=== PATIENT | male | born 1940 | race Caucasian/White ===

== ENCOUNTER → 2024-06-04 | Outpatient (CLI) | payer MEDICARE, SELFPAY ==
[2024-06-04 17:37] LABS: Basophils # (Auto) 0.1 Thou/mm3 (0.0-0.2); Basophils % (Auto) 1 % (0-2.5); Eosinophils # (Auto) 0.4 Thou/mm3 (0.0-0.5); Eosinophils % (Auto) 4 % (0-10); Hematocrit 41.1 % (41.0-53.0); Hemoglobin 13.5 g/dL (13.5-16.0); Immature Granulocytes % (Auto) 1 % (0-0); Immature Granulocytes Auto 0.07 Thou/mm3 (0.00-0.00); Lymphocytes # (Auto) 1.9 Thou/mm3 (1.0-4.8); Lymphocytes % (Auto) 16 % (10-50); Mean Corpuscular HGB Conc 32.8 g/dl (31.0-37.0); Mean Corpuscular Hemoglobin 31.3 pg (25.0-35.0); Mean Corpuscular Volume 95 fL (80-100); Monocytes # (Auto) 1.3 Thou/mm3 (0.0-0.8); Monocytes % (Auto) 11 % (0-12); Neutrophils # (Auto) 8.2 Thou/mm3 (1.8-7.7); Neutrophils % (Auto) 68 % (37-80); Nucleated Red Blood Cell % 0 /100 WBC (0); Platelet Count 192 Thou/mm3 (140-440); RDW Standard Deviation 45.7 fL (35.1-43.9); Red Blood Count 4.32 Miln/mm3 (4.50-5.90); White Blood Count 12.1 Thou/mm3 (3.8-10.6)
[2024-06-04 17:44] LABS: Albumin, Serum 4.1 gm/dL (3.4-4.8); Anion Gap 6 (7-16); BUN/Creatinine Ratio 11 Ratio (12-20); Blood Urea Nitrogen 19 mg/dL (9-23); Calcium 9.5 mg/dL (8.3-10.6); Calcium (Corrected) 9.5 mg/dL (8.5-10.1); Carbon Dioxide 26.7 mMol/L (20.0-31.0); Chloride 103 mMol/L (98-107); Creatinine (Component) 1.8 mg/dL (0.6-1.3); Glucose 143 mg/dL (74-106); Osmolality,Calculated 276 (275-295); Phosphorous 2.8 mg/dL (2.4-5.1); Potassium 4.4 mMol/L (3.4-5.1); Sodium 136 mMol/L (136-145); eGFR 36 See Note
[2024-06-04 18:40] LABS: B-Type Natriuretic Peptide 66 pg/mL (0-100)
== END | disposition home or self-care (01) ==
LOC: COPL 15:21
PROVIDERS: PCP Specialist; Referring Provider Specialist; Visit Provider Specialist
DX: I50.22 Chronic systolic (congestive) heart failure (principal)
CPT/HCPCS: 36415; 80069; 83880; 85025

== ENCOUNTER → 2024-06-16 | Outpatient (CLI) | payer MEDICARE, SELFPAY ==
[2024-06-16 16:34] LABS: Basophils # (Auto) 0.1 Thou/mm3 (0.0-0.2); Basophils % (Auto) 1 % (0-2.5); Eosinophils # (Auto) 0.7 Thou/mm3 (0.0-0.5); Eosinophils % (Auto) 6 % (0-10); Hemoglobin 12.8 g/dL (13.5-16.0); Immature Granulocytes % (Auto) 0 % (0-0); Immature Granulocytes Auto 0.04 Thou/mm3 (0.00-0.00); Lymphocytes # (Auto) 2.9 Thou/mm3 (1.0-4.8); Lymphocytes % (Auto) 24 % (10-50); Mean Corpuscular HGB Conc 32.8 g/dl (31.0-37.0); Mean Corpuscular Hemoglobin 30.6 pg (25.0-35.0); Mean Corpuscular Volume 93 fL (80-100); Monocytes # (Auto) 1.1 Thou/mm3 (0.0-0.8); Monocytes % (Auto) 9 % (0-12); Neutrophils # (Auto) 6.9 Thou/mm3 (1.8-7.7); Neutrophils % (Auto) 59 % (37-80); Nucleated Red Blood Cell % 0 /100 WBC (0); Platelet Count 211 Thou/mm3 (140-440); Red Blood Count 4.18 Miln/mm3 (4.50-5.90); White Blood Count 11.7 Thou/mm3 (3.8-10.6)
[2024-06-16 16:46] LABS: B-Type Natriuretic Peptide 166 pg/mL (0-100)
[2024-06-16 17:07] LABS: Albumin, Serum 4.2 gm/dL (3.4-4.8); Anion Gap 7 (7-16); BUN/Creatinine Ratio 14 Ratio (12-20); Blood Urea Nitrogen 27 mg/dL (9-23); Calcium 9.2 mg/dL (8.3-10.6); Calcium (Corrected) 9.2 mg/dL (8.5-10.1); Carbon Dioxide 26.1 mMol/L (20.0-31.0); Chloride 105 mMol/L (98-107); Creatinine (Component) 1.9 mg/dL (0.6-1.3); Glucose 128 mg/dL (74-106); Osmolality,Calculated 282 (275-295); Phosphorous 3.2 mg/dL (2.4-5.1); Sodium 138 mMol/L (136-145); eGFR 34 See Note
== END | disposition home or self-care (01) ==
PROVIDERS: PCP Specialist; Referring Provider Specialist; Visit Provider Specialist
DX: N18.4 Chronic kidney disease, stage 4 (severe) (principal)
CPT/HCPCS: 36415; 80069; 83880; 85025

== ENCOUNTER → 2024-08-21 | Outpatient (CLI) | payer MEDICARE, SELFPAY ==
[2024-08-21 13:29] LABS: Basophils # (Auto) 0.1 Thou/mm3 (0.0-0.2); Basophils % (Auto) 1 % (0-2.5); Eosinophils # (Auto) 0.5 Thou/mm3 (0.0-0.5); Eosinophils % (Auto) 4 % (0-10); Hematocrit 42.2 % (41.0-53.0); Immature Granulocytes % (Auto) 0 % (0-0); Immature Granulocytes Auto 0.04 Thou/mm3 (0.00-0.00); Lymphocytes # (Auto) 2.7 Thou/mm3 (1.0-4.8); Lymphocytes % (Auto) 25 % (10-50); Mean Corpuscular HGB Conc 33.2 g/dl (31.0-37.0); Mean Corpuscular Hemoglobin 30.7 pg (25.0-35.0); Mean Corpuscular Volume 93 fL (80-100); Monocytes % (Auto) 10 % (0-12); Neutrophils # (Auto) 6.5 Thou/mm3 (1.8-7.7); Neutrophils % (Auto) 60 % (37-80); Nucleated Red Blood Cell % 0 /100 WBC (0); Platelet Count 227 Thou/mm3 (140-440); RDW Standard Deviation 44.4 fL (35.1-43.9); Red Blood Count 4.56 Miln/mm3 (4.50-5.90); White Blood Count 10.9 Thou/mm3 (3.8-10.6)
[2024-08-21 13:43] LABS: Glucose Estimated Average 123 mg/dL (80-131); Hemoglobin A1C 5.9 % Hgb (4.8-6.0)
[2024-08-21 13:46] LABS: Creatinine MALB Rnd Ur 39 mg/dL (30-125); Microalbumin, Random Urine < 3 mg/L (0-300)
[2024-08-21 13:47] LABS: Alanine Aminotransferase 10 U/L (10-49); Albumin/Globulin Ratio 1.9 (1.2-2.2); Alkaline Phosphatase 102 U/L (46-116); Anion Gap 9 (7-16); Aspartate Amino Transferase 14 U/L (0-34); BUN/Creatinine Ratio 14 Ratio (12-20); Bilirubin,Total 0.7 mg/dL (0.3-1.2); Blood Urea Nitrogen 26 mg/dL (9-23); Calcium 9.6 mg/dL (8.3-10.6); Calcium (Corrected) 9.6 mg/dL (8.5-10.1); Carbon Dioxide 26.5 mMol/L (20.0-31.0); Cardiac Risk Estimate 2.6 RATIO (4.0-6.7); Chloride 106 mMol/L (98-107); Cholesterol 124 mg/dL (132-200); Creatinine (Component) 1.9 mg/dL (0.6-1.3); Globulin 2.1 gm/dL (2.3-3.5); Glucose 120 mg/dL (74-106); HDL Cholesterol 47 mg/dL (40-60); LDL Cholesterol,Calculated 56 mg/dL (0-130); Osmolality,Calculated 286 (275-295); Potassium 5.3 mMol/L (3.4-5.1); Sodium 141 mMol/L (136-145); Thyroid Stimulating Hormone 0.73 uIU/mL (0.55-4.78); Total Protein 6.1 gm/dL (5.7-8.2); Triglycerides 104 mg/dL (30-150); eGFR 34 See Note
[2024-08-21 13:50] LABS: B-Type Natriuretic Peptide 65 pg/mL (0-100)
== END | disposition home or self-care (01) ==
LOC: COPL 12:39
PROVIDERS: PCP Specialist; Referring Provider Specialist; Visit Provider Specialist
DX: E11.65 Type 2 diabetes mellitus with hyperglycemia (principal); E78.2 Mixed hyperlipidemia; I50.22 Chronic systolic (congestive) heart failure; D63.8 Anemia in other chronic diseases classified elsewhere
CPT/HCPCS: 36415; 80053; 80061; 82043; 82570; 83036; 83880; 84443; 85025

== ENCOUNTER → 2024-09-17 | Outpatient (CLI) | payer MEDICARE, SELFPAY ==
--- NOTE | 2024-09-17 16:46 | XR_ITS ---
Examination: PA lateral chest 2 views Technique: Upright PA lateral chest 2 views Exam date and time: September 17, 2024 1721 hrs. Comparison April 17, 2024 Indications: Coughing wheezing beginning 3 days ago. Findings: Mild prominence left ventricle Cardiac leads satisfactory position Severe osteopenia No pneumonia or pulmonary edema Impression: No pneumonia or pulmonary edema
== END | disposition home or self-care (01) ==
PROVIDERS: PCP Specialist; Referring Provider Specialist; Visit Provider Specialist
DX: R06.2 Wheezing (principal)
CPT/HCPCS: 71046

== ENCOUNTER → 2024-09-22 | Outpatient (CLI) | payer MEDICARE, SELFPAY ==
[2024-09-22 16:20] LABS: Albumin, Serum 3.9 gm/dL (3.4-4.8); Anion Gap 7 (7-16); BUN/Creatinine Ratio 13 Ratio (12-20); Blood Urea Nitrogen 21 mg/dL (9-23); Calcium 9.2 mg/dL (8.3-10.6); Calcium (Corrected) 9.3 mg/dL (8.5-10.1); Carbon Dioxide 22.9 mMol/L (20.0-31.0); Chloride 110 mMol/L (98-107); Creatinine (Component) 1.6 mg/dL (0.6-1.3); Glucose 101 mg/dL (74-106); Osmolality,Calculated 282 (275-295); Potassium 5.3 mMol/L (3.4-5.1); Sodium 140 mMol/L (136-145); eGFR 42 See Note
== END | disposition home or self-care (01) ==
LOC: COPL 15:27
PROVIDERS: PCP Specialist; Referring Provider Specialist; Visit Provider Specialist
DX: N18.9 Chronic kidney disease, unspecified (principal)
CPT/HCPCS: 36415; 80069

== ENCOUNTER 2024-11-21 15:16 | Inpatient (IN) | payer MEDICARE, SELFPAY ==
[2024-11-21] VITALS (10 sets, daily range): BP systolic 109–158; BP diastolic 60–85; PULSE 69–80; RESP 15–98; TEMP 36.7–36.8; O2SAT 96–99; BMI 28.5; BMI 29.4
--- NOTE | 2024-11-21 15:43 | EKG_ITS ---
[facility] Test Date: 2024-11-21 Pat Name: KRUNAL SALAS Department: Room: - Gender: Male Attending Ambulatory Care: : 1940 Requested By: Mareclo Ballesteros (SELMA) Order Number: [id number] Reading MD: Marcelo Ballesteros (ELECTRIC AR[employer] WELDER) Measurements Intervals [place] Rate: 69 P: MS: QRS: 202 QRSD: 149 T: 14 QT: 434 QTc: 468 Interpretive Statements ELECTRONIC VENTRICULAR PACEMAKER ABNORMAL RHYTHM ECG Compared to ECG 11/27/2023 14:19:33 Atrial-paced complex(es) or rhythm no longer present /store/S0/[id number].pdf
--- NOTE | 2024-11-21 15:44 | PD.EDRME ---
Rapid Medical Screening Exam E Arrival date/time: 11/21/24 15:16 84-year-old male with history of triple bypass and pacemaker currently on blood thinners presents to the emergency department today for complaints of rectal bleeding and vomiting blood today Chief Complaint: GI Bleed Time Seen by Provider: 11/21/24 15:36 Vital signs: Vital Signs Temperature 98.0 F 11/21/24 15:36 Pulse Rate 69 11/21/24 15:36 Respiratory Rate 17 11/21/24 15:36 Blood Pressure 109/64 11/21/24 15:36 Pulse Oximetry (%) 98 11/21/24 15:36 Oxygen Delivery Method Room Air 11/21/24 15:36
[2024-11-21 16:11] LABS: Basophils # (Auto) 0.1 Thou/mm3 (0.0-0.2); Basophils % (Auto) 0 % (0-2.5); Eosinophils % (Auto) 0 % (0-10); Hematocrit 32.4 % (41.0-53.0); Immature Granulocytes % (Auto) 0 % (0-0); Immature Granulocytes Auto 0.06 Thou/mm3 (0.00-0.00); Lymphocytes # (Auto) 2.1 Thou/mm3 (1.0-4.8); Lymphocytes % (Auto) 15 % (10-50); Mean Corpuscular Hemoglobin 30.8 pg (25.0-35.0); Mean Corpuscular Volume 91 fL (80-100); Monocytes # (Auto) 0.6 Thou/mm3 (0.0-0.8); Monocytes % (Auto) 4 % (0-12); Neutrophils # (Auto) 11.8 Thou/mm3 (1.8-7.7); Neutrophils % (Auto) 80 % (37-80); Nucleated Red Blood Cell % 0 /100 WBC (0); Platelet Count 219 Thou/mm3 (140-440); RDW Standard Deviation 45.9 fL (35.1-43.9); Red Blood Count 3.57 Miln/mm3 (4.50-5.90); White Blood Count 14.7 Thou/mm3 (3.8-10.6)
[2024-11-21 16:37] LABS: INR 1.4 (0.9-1.3); Partial Thromboplastin Time 27.8 Seconds (22.0-36.0); Prothrombin Time 14.5 Seconds (9.0-12.2)
[2024-11-21 16:39] LABS: Albumin, Serum 3.8 gm/dL (3.4-4.8); Albumin/Globulin Ratio 1.9 (1.2-2.2); Alkaline Phosphatase 78 U/L (46-116); Anion Gap 10 (7-16); Aspartate Amino Transferase 11 U/L (0-34); BUN/Creatinine Ratio 24 Ratio (12-20); Bilirubin,Total 0.7 mg/dL (0.3-1.2); Blood Urea Nitrogen 41 mg/dL (9-23); Calcium 8.4 mg/dL (8.3-10.6); Calcium (Corrected) 8.6 mg/dL (8.5-10.1); Carbon Dioxide 21.9 mMol/L (20.0-31.0); Chloride 109 mMol/L (98-107); Creatinine (Component) 1.7 mg/dL (0.6-1.3); Estimated Creatinine Clearance 35.7 mL/min (>60); Glucose 203 mg/dL (74-106); Lipase 28 U/L (12-53); Osmolality,Calculated 297 (275-295); Potassium 4.7 mMol/L (3.4-5.1); Sodium 141 mMol/L (136-145); Total Protein 5.8 gm/dL (5.7-8.2); eGFR 39 See Note
[2024-11-21 16:40] LABS: B-Type Natriuretic Peptide 70 pg/mL (0-100)
[2024-11-21 16:48] LABS: Alanine Aminotransferase < 7 U/L (10-49)
[2024-11-21 17:04] LABS: Troponin I 0.114 ng/mL (0.0-0.045)
--- NOTE | 2024-11-21 17:32 | PD.EDGIBLD ---
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 Patient was feeling bad today, and vomited blood with blood clots. And also noted black tarry stools since earlier today. Patient denies any chest pain denies any cough denies any dizziness denies any other complaints no medications taken prior to arrival. Related Data Home Medications ?Medication ?Instructions ?Recorded ?Confirmed simvastatin 20 mg tablet 1 tab PO HS ##90 01/08/15 12/31/23 gabapentin 300 mg capsule 300 mg PO DAILY 04/29/18 12/31/23 tamsulosin 0.4 mg capsule (Flomax) 0.4 mg PO DAILY 04/29/18 12/31/23 tramadol 50 mg tablet 50 mg PO Q6H 04/29/18 12/31/23 vitamin B complex-vitamin C-folic 0.8 mg PO DAILY 04/29/18 12/31/23 acid 0.8 mg tablet (Dialyvite 800) amiodarone 200 mg tablet 200 mg PO QDAY 09/26/18 12/31/23 aspirin 81 mg tablet 81 mg PO QDAY 03/08/22 12/31/23 Held on 11/28/23. Instructions: Resume on 12/05/23. hold for one week. verify with dr. neely when to restart medication finasteride 5 mg tablet 5 mg PO QDAY 10/02/22 12/31/23 fluticasone fur. 200 mcg-umeclid 1 inh inhalation QDAY 10/14/23 12/31/23 62.5 mcg-vilant 25 mcg inhalat.powder (Trelegy Ellipta) albuterol sulfate 90 mcg/actuation 2 puff inhalation Q4-5H PRN 11/07/23 12/31/23 aerosol inhaler cough/wheezing loratadine 10 mg tablet (Claritin) 10 mg PO QDAY PRN allergies 11/07/23 12/31/23 amitriptyline 50 mg tablet 50 mg PO QDAY 11/28/23 12/31/23 sacubitril 24 mg-valsartan 26 mg 1 tab PO DAILY 11/28/23 12/31/23 tablet (Entresto) Previous Rx's ?Medication ?Instructions ?Recorded levalbuterol tartrate 45 2 inh inhalation Q6H wheezing, 09/26/18 mcg/actuation aerosol inhaler coughing or sob #15 grams (Xopenex HFA) bumetanide 1 mg tablet 1 mg PO QDAY #30 tabs 10/18/23 dapagliflozin propanediol 10 mg 10 mg PO QAM #30 tabs 10/18/23 tablet (Farxiga) spironolactone 25 mg tablet 25 mg PO QDAY #30 tabs 10/18/23 Allergies Allergy/AdvReac Type Severity Reaction Status Date / Time Penicillins Allergy Mild rash Verified 11/21/24 15:29 Review of Systems Review of Systems Narrative Review of Systems: Review of system reviewed and within normal limits except mentioned in HPI ED Exam Narrative Physical exam: VITAL SIGNS: Reviewed. GENERAL APPEARANCE: Alert and interactive, follows commands, no acute distress, HEAD AND FACE: Non-traumatic. ENT: PERRL, pink conjunctivitis, eyelid no trauma, Mucous membrane moist. NECK: Supple, nontender, no nuchal rigidity. CHEST: No tenderness, no crepitus, no paradoxical movement, no retractions. LUNGS: Clear, well ventilated, symmetric, no rales, no wheezing, no ronchi, no stridor, good breath sounds bilaterally. HEART: Regular rate, regular rhythm, no murmur, no gallops. ABDOMEN: Soft, positive bowel sounds, nondistended, no guarding, nontender, no rebound, no masses, RECTAL: Rectal exam was done by me, no black tarry stool noted. GENITAL: Deferred. NEUROLOGICAL: Gross motor function intact sensory function intact, Appropriate for age. MUSCULOSKELETAL: low back nontender, full range of motion. EXTREMITIES: Nontender, full range of motion. SKIN: Color pink, dry, no rash, no lacerations, no abrasions, no contusions. LYMPHATICS: Deferred. Course Quality Measures none Orders Category Date Time Status COVID-19 Screening Questionnaire NOW Care 11/21/24 19:27 Active Decision to Admit X1 Care 11/21/24 19:27 Completed EKG (ED ONLY) *Do not use* NOW Care 11/21/24 15:43 Completed Endoscopy Consents .On arrival Care 11/21/24 19:48 Active Insert IV NOW Care 11/21/24 15:44 Active NPO NOW Care 11/21/24 19:16 Active NPO NOW Care 11/21/24 19:48 Active Occult Blood,Stool (Nursing) NOW Care 11/21/24 19:03 Active Consult to Gastroenterology Stat Cons 11/21/24 18:50 Ordered Diet NPO (NOW) Diet 11/21/24 19:16 Completed Diet NPO (NOW) Diet 11/21/24 19:48 Active EKG (ED Only) Stat Exams 11/21/24 15:43 Draft B-Type Natriuretic Peptide Stat Lab 11/21/24 15:53 Completed CBC Stat Lab 11/21/24 15:53 Completed Comprehensive Metabolic Panel Stat Lab 11/21/24 15:53 Completed Lipase Stat Lab 11/21/24 15:53 Completed Magnesium Stat Lab 11/21/24 15:53 Completed Partial Thromboplastin Time Stat Lab 11/21/24 15:53 Completed Prothrombin Time with INR Stat Lab 11/21/24 15:53 Completed Troponin I Stat Lab 11/21/24 15:53 Completed Troponin I Stat Lab 11/21/24 18:27 Completed Urinalysis Stat Lab 11/21/24 17:28 Completed Pantoprazole Inj [Protonix Inj] Med 11/21/24 18:50 Discontinued 80 mg IV X1 ONE Vital Signs Vital signs: Vital Signs Temperature 98.0 F 11/21/24 15:36 Pulse Rate 69 11/21/24 15:36 Respiratory Rate 17 11/21/24 15:36 Blood Pressure 109/64 11/21/24 15:36 Pulse Oximetry (%) 98 11/21/24 15:36 Oxygen Delivery Method Room Air 11/21/24 15:36 GI Bleed MDM Narrative MDM Narrative:: 84-year-old male patient with significant history of triple bypass pacemaker, defibrillator, 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 Patient was feeling bad today, and vomited blood with blood clots. And also noted black tarry stools since earlier today. Patient denies any chest pain denies any cough denies any dizziness denies any other complaints no medications taken prior to arrival. Rectal exam was done by me, I noticed black tarry stool, strongly positive occult blood. Patient was started on IV Protonix. Patient hemoglobin was noted to be 11. CBC showed leukocytosis with 14.7 PT 14.5 INR 1.4 patient's creatinine was also noted to be 1.7 and BUN of 41 troponin noted to be 0.126. Patient is not have any chest pain. I consulted Dr. Higgins, GI specialist on-call discussed the case, thank you For accepting the consult. Patient data External records reviewed:: None Clinical information provided by:: patient Social determinants that could affect healthcare access:: none Patient has the following chronic illnesses:: CAD, on Eliquis How is presenting disease/condition affected by chronic disease/condition?: exacerbated by Evaluation data The following diagnostics were reviewed and interpreted by me:: lab results and radiology exam(s) Lab and/or radiology exams considered but not ordered:: None Interpretation Summary: See results MDM Medications / Prescriptions Medications or Prescriptions considered but not ordered:: None Medication administrations:: Medication Administration History Discontinued Medications Pantoprazole Sodium (Pantoprazole Inj 40 Mg Vial) 80 mg IV X1 ONE Stop: 11/21/24 18:51 Last Admin: 11/21/24 19:12 Dose: 80 mg Documented By: ANYI Protonix IV Consultations Consultation(s) initiated? (list below): No Diagnosis GI bleed differential diagnosis: Upper gastrointestinal hemorrhage, hematochezia and melena Most likely diagnosis given after review of the tests above:: Upper GI bleed Admission Indicated Admission indicated?: indicated Explain why admission is indicated or not indicated:: For endoscopy in the morning Admission Request Was there a request for admission?: Yes Admission Attestation Admission request attestation: Discussed case with [Dr. Eric] from Hospitalist service regarding admission. Discussed patients ED course, exam findings, labs, and radiology results. The Hospitalist [agrees] to accept the patient for admission. Disposition Plan Disposition Plan: Admit Discharge Plan Plan Patient Disposition: Admit Acute Care w/in Hospital Prescriptions/Referrals Prescriptions/Med Rec: No Action finasteride 5 mg tablet 5 mg PO QDAY simvastatin 20 MG tablet 1 tab PO HS Qty: 90 tramadol 50 mg Tablet 50 mg PO Q6H Rx Instructions: every 6-8 hours PRN tamsulosin [Flomax] 0.4 mg Capsule 0.4 mg PO DAILY gabapentin 300 mg Capsule 300 mg PO DAILY Dialyvite 800 0.8 mg Tablet 0.8 mg PO DAILY amiodarone 200 mg tablet 200 mg PO QDAY levalbuterol tartrate [Xopenex HFA] 45 mcg/actuation HFA aerosol inhaler 2 inh INH Q6H Qty: 15 0RF aspirin 81 mg Tablet 81 mg PO QDAY Trelegy Ellipta 200-62.5-25 mcg Blister With Device 1 inh INHALATION QDAY dapagliflozin propanediol [Farxiga] 10 mg tablet 10 mg PO QAM Qty: 30 0RF bumetanide 1 mg tablet 1 mg PO QDAY Qty: 30 0RF spironolactone 25 mg tablet 25 mg PO QDAY Qty: 30 0RF albuterol sulfate 90 mcg/actuation Hfa Aerosol Inhaler 2 puff INHALATION Q4-5H PRN (Reason: cough/wheezing) loratadine [Claritin] 10 mg Tablet 10 mg PO QDAY PRN (Reason: allergies) amitriptyline 50 mg Tablet 50 mg PO QDAY Entresto 24-26 mg Tablet 1 tab PO DAILY Referrals: Abilio Napoles MD [Primary Care Provider] - In 1 week Problem List Clinical Impression: Upper gastrointestinal hemorrhage Patient/Caregiver Discharge Instructions Print Language: Yi Stand Alone Forms: Radha Award Info., Patient Portal Info Letter
[2024-11-21 17:41] LABS: Collection Type, Urine Clean Catch; RBC,Urine 0 /hpf (0-3); Squamous Epithelial Cell,Urine 0 /hpf (0-5)
[2024-11-21 17:47] LABS: Bilirubin,Urine Negative (Negative); Blood,Urine Negative (Negative); Clarity,Urine Clear (Clear/Hazy); Color,Urine Yellow (Lt Yel-Yel); Glucose, Urine Negative (Negative); Ketones,Urine Negative (Negative); Leukocyte Esterase,Urine Negative (Negative); Nitrite,Urine Negative (Negative); Protein,Urine Negative (Neg - Trace); Specific Gravity,Urine 1.028 (1.001-1.035); Urobilinogen,Urine Negative mg/dL (0.0-1.0)
[2024-11-21 17:48] LABS: Bacteria,Urine Rare; WBC,Urine 2 /hpf (0-5)
[2024-11-21] MEDS: PANTOPRAZOLE INJ 40 MG VIAL 80 MG IV (19:12)
[2024-11-21 19:14] LABS: Troponin I 0.126 ng/mL (0.0-0.045)
--- NOTE | 2024-11-21 19:44 | PD.IMCONS ---
HPI Data of Consult Primary Care Provider: Abilio Napoles MD Consult Narrative Reason for consult: Hematemesis, melena History of present illness: 84 years male being evaluated request of the ER team for episodes of hematemesis as well as melanotic stools Presenting hemoglobin 11.0 and 32.4 Patient also had a slightly elevated troponin 1 at 0.114 which has gone up to 0.126 Patient does have history of CABG status post presence of pacemaker and defibrillator for cardiac arrhythmias His traffic officer Dr. Wes Patel and he was switched from Eliquis to Xarelto yesterday he took only 1 dose and started having copious amounts of coffee-ground hematemesis with blood clots and melanotic stools Based on the clinical presentation patient was subsequently admitted cc:: cc: Review of Systems Review of Systems Systems Reviewed: All systems reviewed, normal except as documented Past Medical History Surgical History OTHER SURGICAL HX: As in the history of present illness Meds Home Medications and Allergies Home Medications ?Medication ?Instructions ?Recorded ?Confirmed ?Type simvastatin 20 mg tablet 1 tab PO HS ##90 01/08/15 12/31/23 History gabapentin 300 mg capsule 300 mg PO DAILY 04/29/18 12/31/23 History tamsulosin 0.4 mg capsule (Flomax) 0.4 mg PO DAILY 04/29/18 12/31/23 History tramadol 50 mg tablet 50 mg PO Q6H 04/29/18 12/31/23 History vitamin B complex-vitamin C-folic 0.8 mg PO DAILY 04/29/18 12/31/23 History acid 0.8 mg tablet (Dialyvite 800) amiodarone 200 mg tablet 200 mg PO QDAY 09/26/18 12/31/23 History aspirin 81 mg tablet 81 mg PO QDAY 03/08/22 12/31/23 History Held on 11/28/23. Instructions: Resume on 12/05/23. hold for one week. verify with on when to restart medication finasteride 5 mg tablet 5 mg PO QDAY 10/02/22 12/31/23 History fluticasone fur. 200 mcg-umeclid 1 inh inhalation QDAY 10/14/23 12/31/23 History 62.5 mcg-vilant 25 mcg inhalat.powder (Trelegy Ellipta) albuterol sulfate 90 mcg/actuation 2 puff inhalation Q4-5H PRN 11/07/23 12/31/23 History aerosol inhaler cough/wheezing loratadine 10 mg tablet (Claritin) 10 mg PO QDAY PRN allergies 11/07/23 12/31/23 History amitriptyline 50 mg tablet 50 mg PO QDAY 11/28/23 12/31/23 History sacubitril 24 mg-valsartan 26 mg 1 tab PO DAILY 11/28/23 12/31/23 History tablet (Entresto) Allergies Allergy/AdvReac Type Severity Reaction Status Date / Time Penicillins Allergy Mild rash Verified 11/21/24 15:29 Exam Vital Signs Temp Pulse Resp BP Pulse Ox O2 Del Method 98.2 F 70 19 123/63 97 Room Air 11/21/24 18:42 11/21/24 18:42 11/21/24 18:42 11/21/24 18:42 11/21/24 18:42 11/21/24 18:42 Constitutional Comments: Chronically ill-appearing Routine Respiratory Exam Comments: Normal to auscultation Routine Abdominal Exam Comments: Soft nontender Results Labs 11/21/24 15:53 11/21/24 15:53 Labs: Short CBC 11/21/24 Range/Units 15:53 WBC 14.7 H (3.8-10.6) Thou/mm3 Hgb 11.0 L (13.5-16.0) g/dL Hct 32.4 L (41.0-53.0) % Plt Count 219 (140-440) Thou/mm3 BMP 11/21/24 15:53 Sodium 141 Potassium 4.7 Chloride 109 H Carbon Dioxide 21.9 BUN 41 H Creatinine 1.7 H Glucose 203 H Calcium 8.4 Cardiac Enzymes 11/21/24 11/21/24 Range/Units 15:53 18:27 Troponin I 0.114 H* 0.126 H* (0.0-0.045) ng/mL Liver Function 11/21/24 Range/Units 15:53 Total Bilirubin 0.7 (0.3-1.2) mg/dL AST 11 (0-34) U/L ALT < 7 L (10-49) U/L Alkaline Phosphatase 78 (46-116) U/L Albumin 3.8 (3.4-4.8) gm/dL Urine 11/21/24 Range/Units 17:28 Urine Color Yellow (Lt Yel-Yel) Urine Clarity Clear (Clear/Hazy) Urine pH 6.0 (5.0-7.0) Ur Specific [place] 1.028 (1.001-1.035) Urine Protein Negative (Neg - Trace) Urine Glucose (UA) Negative (Negative) Assessment and Plan Additional Assessment & Plan Additional Plan: # Hematemesis # Melena N.p.o. IV Protonix Consent obtained for fiberoptic esophagogastroduodenoscopy with possible therapeutic intervention possible biopsy under intravenous moderate sedation Scheduled for tomorrow Serial CBC Hold of the Cee Other medical problems include Cardiac arrhythmias requiring pacemaker/defibrillator Coronary artery disease status post CABG Elevated troponin Thank you very much for the opportunity to participate in the care of this patient
[2024-11-21] MEDS: PANTOPRAZOLE INJ 40 MG VIAL IVP (21:26)
--- NOTE | 2024-11-21 21:39 | ESHP_ITS ---
Documentation for date of: 11/21/24 [facility] History of Present Illness History of present illness: Mr. Emery is a 84-year-old male with past medical history of congestive heart failure with reduced ejection fraction, EF 25% 11/2023 status post F[employer]INGS COMPOUNDER-D placement, chronic kidney disease, chronic obstructive pulmonary disease, atrial fibrillation, BPH, coronary artery disease status post cardiac bypass and type 2 diabetes mellitus who presented to [facility] emergency department on 11/21/2024 with a chief complaint of GI bleed. Patient reports that he was recently switched from Eliquis to Xarelto by his gun perforator on Sunday, reports taking first dose of Xarelto yesterday followed by an episode of bloody emesis, reports 1 episode consisted of partially digested food with blood clots. Patient also complains of dark stools, reports them to be black in color, otherwise patient has no current complaints. He does report history of gastric ulcers in the past. Patient follows up with gun perforator Dr. Kimberly Paetl, was recently seen by broaching machine operator Dr. Lam and follows Dr. Pratt for urology. Patient denies any chest pain, shortness of breath, palpitations, dizziness, syncope or headache. ED Course: ED Vitals: On presentation blood pressure 109/64, heart rate 69, respiratory rate 17, temp 98.0, O2 sat 98 on room air ED Labs: ED labs significant for WBC 14.7, RBC 3.75, hemoglobin 11.0, hematocrit 32.4, PT 14.5, INR 1.4, chloride 119, BUN 41, creatinine 1.7, GFR 39, glucose 203, osmolality 297, Globulin 2.0 ED Imaging:EKG in ED shows electronic ventricular pacemaker rhythm ED Treatment:Patient was given Protonix 80 mg x 1 in ED and gastroenterology was consulted Review of Systems Review of Systems Narrative Review of Systems: ROS: -CONSTITUTIONAL: Denies weight loss, fever and chills. -HEENT: Denies changes in vision and hearing. -RESPIRATORY: Denies SOB and cough. -CV: Denies palpitations and Chest Pain. -GI: Denies abdominal pain, nausea, vomiting,constipation and diarrhea. Positive for melena and hematemesis. -: Denies dysuria and urinary frequency. -MSK: Denies myalgia and joint pain. -SKIN: Denies rash and pruritus. -NEUROLOGICAL: Denies headache and syncope. -PSYCHIATRIC: Denies recent changes in mood. Denies anxiety and depression. Past Medical History Past Medical History Comments PMH COMMENT: PMH: Positive for congestive heart failure with reduced ejection fraction, EF 25% 11/2023 status post F[employer]INGS COMPOUNDER-D placement, chronic kidney disease, chronic obstructive pulmonary disease, atrial fibrillation, BPH, coronary artery disease status post cardiac bypass and type 2 diabetes mellitus PSHx: Cardiac bypass surgery in 2015, shoulder surgery left shoulder. Allergies: Penicillin Social history: -Smoking: Half pack per day for 1 year in the past -Alcohol Use: Denies heavy alcohol use in the past, does report occasional alcohol use -Illicit Drug Use: Denies -Martial Status: Family History: Positive for myocardial infarction in brother Exam Vital Signs Temp Pulse Resp BP Pulse Ox O2 Del Method 98.1 F 70 18 153/75 H 99 Room Air 11/21/24 21:13 11/21/24 21:16 11/21/24 21:13 11/21/24 21:13 11/21/24 21:13 11/21/24 21:13 Narrative Exam Physical Exam General: Awake and in no acute distress. Conversational and non-toxic appearing. HEENT: Normocephalic, atraumatic, mucous membranes moist. Heart: Regular rate and rhythm, no murmurs. Lungs: Clear to auscultation with no wheezing or crackles. Abdomen: Soft, nondistended, nontender, positive bowel sounds. ?No guarding or rebound tenderness. Neurologic: Alert and oriented x3, no gross neurological deficit, and patient able to move all 4 extremities. Extremities: No edema. Skin: No rash or ecchymoses. Results: Labs 11/21/24 15:53 11/21/24 15:53 Labs: Short CBC 11/21/24 Range/Units 15:53 WBC 14.7 H (3.8-10.6) Thou/mm3 Hgb 11.0 L (13.5-16.0) g/dL Hct 32.4 L (41.0-53.0) % Plt Count 219 (140-440) Thou/mm3 BMP 11/21/24 15:53 Sodium 141 Potassium 4.7 Chloride 109 H Carbon Dioxide 21.9 BUN 41 H Creatinine 1.7 H Glucose 203 H Calcium 8.4 Cardiac Enzymes 11/21/24 11/21/24 Range/Units 15:53 18:27 Troponin I 0.114 H* 0.126 H* (0.0-0.045) ng/mL Liver Function 11/21/24 Range/Units 15:53 Total Bilirubin 0.7 (0.3-1.2) mg/dL AST 11 (0-34) U/L ALT < 7 L (10-49) U/L Alkaline Phosphatase 78 (46-116) U/L Albumin 3.8 (3.4-4.8) gm/dL Urine 11/21/24 Range/Units 17:28 Urine Color Yellow (Lt Yel-Yel) Urine Clarity Clear (Clear/Hazy) Urine pH 6.0 (5.0-7.0) Ur Specific [place] 1.028 (1.001-1.035) Urine Protein Negative (Neg - Trace) Urine Glucose (UA) Negative (Negative) Quality Measures Quality Measures none Advance care planning discussed with:: patient Medications Home Medications and Allergies Home Medications ?Medication ?Instructions ?Recorded ?Confirmed ?Type simvastatin 20 mg tablet 1 tab PO HS ##90 01/08/15 History gabapentin 300 mg capsule 300 mg PO DAILY 04/29/18 History tamsulosin 0.4 mg capsule (Flomax) 0.4 mg PO DAILY 12/31/23 History tramadol 50 mg tablet 50 mg PO Q6H 04/29/18 History vitamin B complex-vitamin C-folic 0.8 mg PO DAILY 04/0912/31/23 History acid 0.8 mg tablet (Dialyvite 800) amiodarone 200 mg tablet 200 mg PO QDAY 09/26/1812/08 History aspirin 81 mg tablet 81 mg PO QDAY 03/08/2212/30 History Held on 11/28/23. Instructions: Resume on 12/05/23. hold for one week. verify with on when to restart medication finasteride 5 mg tablet 5 mg PO QDAY 10/02/22 History fluticasone fur. 200 mcg-umeclid 1 inh inhalation QDAY 10/14/23 12/31/23 History 62.5 mcg-vilant 25 mcg inhalat.powder (Trelegy Ellipta) albuterol sulfate 90 mcg/actuation 2 puff inhalation Q 4-5H PRN 11/07/23 12/31/23 History aerosol inhaler cough/wheezing loratadine 10 mg tablet (Claritin) 10 mg PO QDAY PRN a llergies 11/07/23 12/31/23 History amitriptyline 50 mg tablet 50 mg PO QDAY 11/28/2312/08 History sacubitril 24 mg-valsartan 26 mg 1 tab PO DAILY 12/31/23 History tablet (Entresto) Allergies Allergy/AdvReac Type Severity Reaction Status Date / Time Penicillins Allergy Mild rash Verified 11/21/24 15:29 Visit Medications Acetaminophen (Acetaminophen 325 Mg Tablet) 650 mg PO Q6H PRN PRN Reason: Pain (1-3) & Fever >100.4 Stop: 12/21/24 20:45 Albuterol/Ipratropium (Albuterol/Ipratropium (Duoneb) Rt Val 3 Ml Nebu) 3 ml INH Q4HRRT PRN PRN Reason: SOB/Wheeze Stop: 12/21/24 22:59 Dextrose (Dextrose 50%-Water Inj 50 Ml Syringe) 25 ml IV Q15MIN PRN PRN Reason: BG 50-70 responsive npo pt Stop: 12/21/24 21:09 Dextrose (Dextrose 50%-Water Inj 50 Ml Syringe) 50 ml IV Q15MIN PRN PRN Reason: BG <50 OR BG <70 & pt unresponsive Stop: 12/21/24 21:09 Glucagon (Glucagon Inj 1 Mg Vial) 1 mg IM Q15MIN PRN PRN Reason: BG <70, and no IV access Insulin Human Lispro (Insulin Lispro (Admelog) 1 Unit/0.01 Ml Unit) 0 unit SC AC WENDY; Protocol Stop: 12/22/24 07:29 Ondansetron HCl (Ondansetron Inj 2 Mg/Ml Inj 2 Ml) 4 mg IV Q6H PRN; Protocol PRN Reason: NAUSEA OR VOMITING Stop: 12/21/24 20:45 Pantoprazole Sodium (Pantoprazole Inj 40 Mg Vial) 40 mg IVP Q12HR WENDY Stop: 12/21/24 20:59 Last Admin: 11/21/24 21:26 Dose: 40 mg Discontinued Medications Pantoprazole Sodium (Pantoprazole Inj 40 Mg Vial) 80 mg IV X1 ONE Stop: 11/21/24 18:51 Last Admin: 11/21/24 19:12 Dose: 80 mg Assessment & Plan Plan Assessment and plan: Summary: Mr. Emery is a 84-year-old male with past medical history of congestive heart failure with reduced ejection fraction, EF 25% 11/2023 status post F[employer] COMPOUNDER-D placement, chronic kidney disease, chronic obstructive pulmonary disease, atrial fibrillation, BPH, coronary artery disease status post cardiac bypass and type 2 diabetes mellitus who presented to [facility] emergency department on 11/21/2024 with a chief complaint of GI bleed. Patient admitted for further workup. #Acute GI bleed #History of gastric ulcer Patient was recently switched from Eliquis to Xarelto, had 1 episode of bloody emesis, also complains of dark stools. Patient's hemoglobin normally within the range of 13?14, presented with hemoglobin of 11, otherwise hemodynamically stable. Does have history of gastric ulcer in the past. Plan: -Protonix 40 IV twice daily -Keep n.p.o., scheduled for EGD in a.m. -Monitor vitals closely -GI consulted, appreciate recommendations #Elevated Troponin, Type II likely Patient denies any chest pain, on presentation troponin 0.114 -> 0.126, EKG shows pacemaker rhythm - Trend troponins until they downtrend - Monitor for chest pain #Normocytic Normochromic Anemia Possibly secondary to blood loss, will continue to monitor - Transfuse if hemoglobin less than 7 - Ordered type and screen #Chronic Kidney Disease Patient has CKD, baseline creatinine in the range of 1.6-1.8, baseline GFR in the range 34-42, was recently referred to nephrology - Renally dose medication - Avoid nephrotoxic agents - Monitor renal function in a.m. #COPD, by history Patient has history of COPD, uses inhalers at home, currently not in any exacerbation - DuoNeb as needed #Benign Prostate Hypertrophy Has history of BPH, follows Dr. Pratt, pending med reconciliation #Atrial Fibrillation, by history #Congestive heart failure with reduced ejection fraction, EF 25% 11/2023 #Status post F[employer]INGS COMPOUNDER-D placement #Coronary artery disease status post cardiac bypass Patient's cardiac catheterization and F[employer]INGS COMPOUNDER-D placement note from November 2023 shows bypass grafts patent, echo did show severe lateral wall dyssynchrony severe akinesis at septum, does have ischemic cardiomyopathy, ejection fraction 25%. - Consider resuming GDMT in a.m. if blood pressure tolerates - Hold anticoagulation for now, patient was recently switched to Xarelto from Eliquis - Woodworking Machine Feeder Dr. Terra Patel consulted, appreciate recommendations - Follow lipid panel, A1c and TSH in a.m. #Type 2 Diabetes Mellitus Patient has history of type 2 diabetes mellitus - Sliding scale insulin - Fingerstick blood glucose monitoring - Hypoglycemia protocol in place DVT prophylaxis: SCDs GI prophylaxis: Protonix 40mg BID Diet: NPO Lines: Peripheral IV Code status: Full Code Case discussed with Attending Dr. Tanner. Melva Eric PGY1 Disclaimer: This note was dictated by speech recognition. Minor errors in roof service technician may be present due to voice recognition software. Attending Provider Attestation/Addendum 84-year-old male with past medical history of HFrEF, CKD, COPD, A-fib on Xarelto presents to the ED with chief complaint of 1 episode of large-volume hematemesis. Patient reports subsequent dizziness and fatigue. He will be admitted for acute upper GI bleed and symptomatic anemia. Protonix 40 IV twice daily, GI consult, n.p.o. Bud Tanner MD
[2024-11-22] VITALS (44 sets, daily range): BP systolic 111–172; BP diastolic 46–101; PULSE 70–80; RESP 5–98; TEMP 36.3–36.9; O2SAT 90–100
[2024-11-22 03:06] LABS: Troponin I 0.098 ng/mL (0.0-0.045)
[2024-11-22 07:25] LABS: Basophils # (Auto) 0.1 Thou/mm3 (0.0-0.2); Basophils % (Auto) 1 % (0-2.5); Eosinophils # (Auto) 0.2 Thou/mm3 (0.0-0.5); Eosinophils % (Auto) 1 % (0-10); Hematocrit 27.8 % (41.0-53.0); Hemoglobin 9.3 g/dL (13.5-16.0); Immature Granulocytes % (Auto) 0 % (0-0); Immature Granulocytes Auto 0.04 Thou/mm3 (0.00-0.00); Lymphocytes % (Auto) 21 % (10-50); Mean Corpuscular HGB Conc 33.5 g/dl (31.0-37.0); Mean Corpuscular Hemoglobin 30.7 pg (25.0-35.0); Mean Corpuscular Volume 92 fL (80-100); Monocytes % (Auto) 8 % (0-12); Neutrophils # (Auto) 9.6 Thou/mm3 (1.8-7.7); Neutrophils % (Auto) 69 % (37-80); Nucleated Red Blood Cell % 0 /100 WBC (0); Platelet Count 189 Thou/mm3 (140-440); RDW Standard Deviation 47.3 fL (35.1-43.9); Red Blood Count 3.03 Miln/mm3 (4.50-5.90); White Blood Count 13.9 Thou/mm3 (3.8-10.6)
[2024-11-22 08:36] LABS: Glucose Estimated Average 111 mg/dL (80-131); Hemoglobin A1C 5.5 % Hgb (4.8-6.0)
[2024-11-22 08:45] LABS: INR 1.2 (0.9-1.3); Partial Thromboplastin Time 25.4 Seconds (22.0-36.0); Prothrombin Time 12.9 Seconds (9.0-12.2)
[2024-11-22] MEDS: PANTOPRAZOLE INJ 40 MG VIAL IVP ×2 (09:11→21:00)
[2024-11-22 09:29] LABS: Alanine Aminotransferase < 7 U/L (10-49); Albumin, Serum 3.4 gm/dL (3.4-4.8); Alkaline Phosphatase 66 U/L (46-116); Anion Gap 9 (7-16); Aspartate Amino Transferase 10 U/L (0-34); BUN/Creatinine Ratio 28 Ratio (12-20); Bilirubin,Total 0.7 mg/dL (0.3-1.2); Blood Urea Nitrogen 45 mg/dL (9-23); Calcium 8.1 mg/dL (8.3-10.6); Calcium (Corrected) 8.6 mg/dL (8.5-10.1); Cardiac Risk Estimate 2.9 RATIO (4.0-6.7); Chloride 112 mMol/L (98-107); Cholesterol 106 mg/dL (132-200); Creatinine (Component) 1.6 mg/dL (0.6-1.3); Globulin 1.7 gm/dL (2.3-3.5); Glucose 152 mg/dL (74-106); HDL Cholesterol 36 mg/dL (40-60); LDL Cholesterol,Calculated 50 mg/dL (0-130); Osmolality,Calculated 299 (275-295); Phosphorous 2.9 mg/dL (2.4-5.1); Potassium 4.4 mMol/L (3.4-5.1); Sodium 143 mMol/L (136-145); Thyroid Stimulating Hormone 0.48 uIU/mL (0.55-4.78); Total Protein 5.1 gm/dL (5.7-8.2); Triglycerides 100 mg/dL (30-150); eGFR 42 See Note
--- NOTE | 2024-11-22 10:48 | ESPR_ITS ---
<Statement entered by Desmond Moore MD - 11/27/24 16:23> I reviewed above note and agree with findings and plans. I have also personally examined the patient with medicine team and went over assessment and plan with medical team including international account representative and resident physician. Documentation for date of: 11/22/24 Subjective Subjective Interval history: 11/22/2024: Overnight admission for 84-year-old male with significant cardiac history HFrEF (EF 25%), status post DIRECTOR OF RETAIL MERCHANDISING and CABG along with A-fib recently started on Xarelto presenting with bloody emesis with clots along with melena. Patient seen and assessed reporting hunger pains and states that he has not eaten for the past 2 days. Patient has scheduled EGD with gastroenterology for this afternoon; however, we will start clear liquid diet and follow-up with gastroenterology. Patient has not had melena while admitted in the hospital. Troponins have peaked and are now downtrending, MORENITA on CKD is improving. Will continue monitor and follow-up with gastroenterology findings. Exam Vital Signs Temp Pulse Resp BP Pulse Ox O2 Del Method 98.2 F 70 22 H 123/55 L 93 L Room Air 11/22/24 08:13 11/22/24 09:00 11/22/24 09:00 11/22/24 09:00 11/22/24 09:00 11/22/24 07:29 Narrative Exam Physical Exam: GENERAL: Awake, answering questions appropriately, appears stated age HEENT: NC/AT. Moist mucosa. PERRLA/EOMI. CARDIO: Heart RRR, no obvious murmurs, no JVD. PULM: No coughing or visible SOB. Lungs CTA B/L. GI: Abdomen soft, mild tenderness to palpation hypogastric region. Borborygmi apparent, no rebound or guarding noted SKIN/MSK/EXT: No wounds/discoloration/rashes/edema/amputations noted. +Pedal pulses present B/L. NEURO: Oriented x3, Moves extremities x4, no focal neurologic deficits noted Objective Labs 11/22/24 06:54 11/22/24 06:54 Labs: Laboratory Results - last 24 hr 11/21/24 11/21/24 11/21/24 15:53 17:28 18:27 WBC 14.7 H RBC 3.57 L Hgb 11.0 L Hct 32.4 L MCV 91 MCH 30.8 MCHC 34.0 RDW Std Deviation 45.9 H Plt Count 219 Neut % (Auto) 80 Lymph % (Auto) 15 [place] % (Auto) 4 Eos % (Auto) 0 Baso % (Auto) 0 Neut # (Auto) 11.8 H Lymph # (Auto) 2.1 [place] # (Auto) 0.6 Eos # (Auto) 0.0 Baso # (Auto) 0.1 Immature Gran # (Auto) 0.06 H Absolute Nucleated RBC 0.00 Immature Gran % 0 Nucleated RBC % 0 PT 14.5 H INR 1.4 H APTT 27.8 Sodium 141 Potassium 4.7 Chloride 109 H Carbon Dioxide 21.9 Anion Gap 10 BUN 41 H Creatinine 1.7 H Estim Creat Clear Calc 35.7 L eGFR 39 L BUN/Creatinine Ratio 24 H Glucose [address] Glu mg/dL Hemoglobin A1c Calculated Osmolality 297 H Calcium 8.4 Corrected Calcium 8.6 Phosphorus Magnesium 2.0 Total Bilirubin 0.7 AST 11 ALT < 7 L Alkaline Phosphatase 78 Troponin I 0.114 H* 0.126 H* B-Natriuretic Peptide 70 Total Protein 5.8 Albumin 3.8 Globulin 2.0 L Albumin/Globulin Ratio 1.9 Triglycerides Cholesterol LDL Cholesterol, Calc HDL Cholesterol Cholesterol/HDL Ratio Lipase 28 TSH Ur Collection Type Clean Catch Urine Color Yellow Urine Clarity Clear Urine pH 6.0 Ur Specific [place] 1.028 Urine Protein Negative Urine Glucose (UA) Negative Urine Ketones Negative Urine Blood Negative Urine Nitrite Negative Urine Bilirubin Negative Urine Urobilinogen (Auto) Negative Ur Leukocyte Esterase Negative Urine RBC 0 Urine WBC 2 Ur Squamous Epith Cells 0 Urine Bacteria Rare Blood Type Antibody Screen Blood Bank Wristband ID 11/22/24 11/22/24 11/22/24 01:13 02:30 06:54 WBC 13.9 H RBC 3.03 L Hgb 9.3 L Hct 27.8 L MCV 92 MCH 30.7 MCHC 33.5 RDW Std Deviation 47.3 H Plt Count 189 D Neut % (Auto) 69 Lymph % (Auto) 21 Humphre[place] % (Auto) 8 Eos % (Auto) 1 Baso % (Auto) 1 Neut # (Auto) 9.6 H Lymph # (Auto) 3.0 [place] # (Auto) 1.0 H Eos # (Auto) 0.2 Baso # (Auto) 0.1 Immature Gran # (Auto) 0.04 H Absolute Nucleated RBC 0.00 Immature Gran % 0 Nucleated RBC % 0 PT 12.9 H INR 1.2 APTT 25.4 Sodium 143 Potassium 4.4 Chloride 112 H Carbon Dioxide 22.0 Anion Gap 9 BUN 45 H Creatinine 1.6 H Estim Creat Clear Calc 38.0 L eGFR 42 L BUN/Creatinine Ratio 28 H Glucose [address] Glu mg/dL 111 Hemoglobin A1c 5.5 Calculated Osmolality 299 H Calcium 8.1 L Corrected Calcium 8.6 Phosphorus 2.9 Magnesium 2.0 Total Bilirubin 0.7 AST 10 ALT < 7 L Alkaline Phosphatase 66 Troponin I 0.098 H* Cancelled B-Natriuretic Peptide Total Protein 5.1 L Albumin 3.4 Globulin 1.7 L Albumin/Globulin Ratio 2.0 Triglycerides 100 Cholesterol 106 L LDL Cholesterol, Calc 50 HDL Cholesterol 36 L Cholesterol/HDL Ratio 2.9 L Lipase TSH 0.48 L Ur Collection Type Urine Color Urine Clarity Urine pH Ur Specific [place] Urine Protein Urine Glucose (UA) Urine Ketones Urine Blood Urine Nitrite Urine Bilirubin Urine Urobilinogen (Auto) Ur Leukocyte Esterase Urine RBC Urine WBC Ur Squamous Epith Cells Urine Bacteria Blood Type A Positive Antibody Screen NEGATIVE Blood Bank Wristband ID Yes Quality Measures Quality Measures none Advance care planning discussed with:: patient Assessment & Plan Assessment Current Active Medications: Generic Name Dose Route Start Last Admin Trade Name Freq PRN Reason Stop Dose Admin Acetaminophen 650 mg 11/21/24 20:46 Acetaminophen 325 Mg Tablet PO 12/21/24 20:45 Q6H PRN Pain (1-3) & Fever >100.4 Albuterol/Ipratropium 3 ml 11/21/24 21:06 Albuterol/Ipratropium (Duoneb) Rt Val 3 Ml Nebu INH 12/21/24 22:59 Q4HRRT PRN SOB/Wheeze Dextrose 25 ml 11/21/24 21:10 Dextrose 50%-Water Inj 50 Ml Syringe IV 12/21/24 21:09 Q15MIN PRN BG 50-70 responsive npo pt Dextrose 50 ml 11/21/24 21:10 Dextrose 50%-Water Inj 50 Ml Syringe IV 12/21/24 21:09 Q15MIN PRN BG <50 OR BG <70 & pt unresponsive Glucagon 1 mg 11/21/24 21:10 Glucagon Inj 1 Mg Vial IM Q15MIN PRN BG <70, and no IV access Insulin Human Lispro 0 unit 11/22/24 07:30 11/22/24 08:02 Insulin Lispro (Admelog) 1 Unit/0.01 Ml Unit SC 12/22/24 07:29 Not Given AC [facility] Protocol Ondansetron HCl 4 mg 11/21/24 20:46 Ondansetron Inj 2 Mg/Ml Inj 2 Ml IV 12/21/24 20:45 Q6H PRN NAUSEA OR VOMITING Protocol Pantoprazole Sodium 40 mg 11/21/24 21:00 11/22/24 09:11 Pantoprazole Inj 40 Mg Vial IVP 12/21/24 20:59 40 mg Q12HR WENDY Administration Plan 84-year-old male with past medical history of congestive heart failure with reduced ejection fraction, EF 25% 11/2023 status post DIRECTOR OF RETAIL MERCHANDISING-D placement, chronic kidney disease, chronic obstructive pulmonary disease, atrial fibrillation, BPH, coronary artery disease status post cardiac bypass who presented to [facility] emergency department on 11/21/2024 with a chief complaint of GI bleed. Patient admitted for further workup. #Acute GI bleed, likely upper #History of gastric ulcer Patient was recently switched from Eliquis to Xarelto, had 1 episode of bloody emesis, also complains of dark stools. Patient's hemoglobin normally within the range of 13?14, presented with hemoglobin of 11, otherwise hemodynamically stable. Does have history of gastric ulcer in the past. Plan: EGD scheduled with GI Protonix 40 IV twice daily Started clear liquid diet x 1 Monitor vitals closely Transfuse if hemoglobin less than 7 GI consulted, appreciate recommendations #Elevated Troponin, Type II likely Patient denies any chest pain, on presentation troponin 0.114 -> 0.126 => 0.098 EKG shows pacemaker rhythm Trended troponins until they peaked and downtrend Plan: Monitor for chest pain #Chronic Kidney Disease stage IIIb Patient has CKD, baseline creatinine in the range of 1.6-1.8, baseline GFR in the range 34-42, was recently referred to nephrology Plan: Renally dose medication Avoid nephrotoxic agents Monitor renal function in a.m. #COPD, by history Patient has history of COPD, uses inhalers at home, currently not in any exacerbation Plan: DuoNeb as needed #Benign Prostate Hypertrophy Has history of BPH, follows Dr. Pratt, pending med reconciliation Plan: Will restart home medications when appropriate #Atrial Fibrillation, by history #Congestive heart failure with reduced ejection fraction, EF 25% 11/2023 #Status post [employer] OF [employer]CHANDISING-D placement #Coronary artery disease status post cardiac bypass Patient's cardiac catheterization and DIRECTOR OF [employer]CHANDISING-D placement note from November 2023 shows bypass grafts patent, echo did show severe lateral wall dyssynchrony severe akinesis at septum, does have ischemic cardiomyopathy, ejection fraction 25%. Lipid panel unremarkable, LDL 50, total cholesterol 106, triglycerides 100 and HDL 36 Plan: Will restart GDMT when appropriate Hold anticoagulation for now, patient was recently switched to Xarelto from [facility] Senior [employer] Developer Dr. Patel consulted, appreciate recommendations Hospital Management: DVT prophylaxis: SCDs GI prophylaxis: Protonix 40mg BID Diet: Clear liquid x 1 prior to procedure Lines: Peripheral IV Dispo: Pending EGD with Dr. Higgins Code status: Full Code Patient seen and assessed with attending Dr. Teresa Saucedo, PGY-1
--- NOTE | 2024-11-22 10:49 | ESCONSULT_ITS ---
<Statement entered by Kimberly Patel MD - 11/25/24 08:21> The patient is well-known to me has longstanding history of CAD status post CABG biventricular TONGUE STITCHER defibrillator implantation admitted to the hospital with upper GI bleeding patient appears to be stable no significant blood loss patient was started on Xarelto recently because of paroxysmal atrial fibrillation known diagnosis and also pacemaker showed evidence of atrial fibrillation burden significantly high patient is doing better no further episodes atrial fibrillation will hold off anticoagulation until GI bleeding problems resolved. Evaluate the patient with resident physician agree with the treatment plan recommendation and holding of anticoagulation for now continue the rest of medication The patient with Dr. Thompson PGY 2 all essential components of the consultation are reviewed by me personally HPI Data of Consult Requesting Physician: Bud Tanner MD Admitting Provider: Bud Tanner MD Attending Provider: Bud Tanner MD Primary Care Provider: Abilio Napoles MD Consult Narrative Reason for consult: cardiac problems management History of present illness: Patient is 84 years old male with past medical history of HFrEF 25% s/p TONGUE STITCHER-D placement, A-fib, CAD s/p CABG, CKD, COPD, diabetes type 2 presented to the ED due to GI bleed and was admitted for further evaluation and management. Patient was seen in cardiology office 3 days ago when his Eliquis was switched to Xarelto, he started new medication over the next day and developed bloody emesis with blood clots x 1, followed by black stools. He confirms he did not take Xarelto and Eliquis simultaneously. He reports some abdominal pain in the lower belly. He denies any chest pain or pressure or shortness of breath. Patient was given Protonix 80 mg x 1 IV in the ED and was admitted for possible EGD, GI is consulted. Cardiology was consulted for management of his cardiac problems. Patient was seen and examined at the bedside in the ED. He is asymptomatic right now and have not had any bowel movement or vomiting since admission. Pending GI evaluation, EGD likely today afternoon. He is n.p.o. and is on Protonix 40 mg twice daily IV. His aspirin and Xarelto are held. At this moment his vitals are stable, blood pressure 123/55, heart rate at 70. Resume his home cardiac medications according to blood pressure. cc:: cc: Bud Tanner MD Review of Systems Review of Systems Systems Reviewed: All systems reviewed, normal except as documented Exam Vital Signs Temp Pulse Resp BP Pulse Ox O2 Del Method 98.2 F 70 22 H 123/55 L 93 L Room Air 11/22/24 08:13 11/22/24 09:00 11/22/24 09:00 11/22/24 09:00 11/22/24 09:00 11/22/24 07:29 Narrative Exam Gen: Well-developed and well-nourished elderly. HEENT: NCAT, PERRLA, EOMI, MMM, anicteric conjunctivae. CVS: normal S1 and S2. RRR. No M/R/G. Resp: CTA B/L. No rhonchi, rales, crackles or wheezing. Abd: soft, mildly tender, non-distended. BS+ in all 4 quadrants. MSK: Good ROM in BUE & BLE. No rash. Trace edema BLE. Neuro: CN II-XII grossly intact. Strength 5/5 in BUE & BLE. Alert and oriented x3. Psych: appropriate mood and affect. Results Labs 11/22/24 06:54 11/22/24 06:54 Labs: Short CBC 11/21/24 11/22/24 Range/Units 15:53 06:54 WBC 14.7 H 13.9 H (3.8-10.6) Thou/mm3 Hgb 11.0 L 9.3 L (13.5-16.0) g/dL Hct 32.4 L 27.8 L (41.0-53.0) % Plt Count 219 189 D (140-440) Thou/mm3 BMP 11/21/24 11/22/24 15:53 06:54 Sodium 141 143 Potassium 4.7 4.4 Chloride 109 H 112 H Carbon Dioxide 21.9 22.0 BUN 41 H 45 H Creatinine 1.7 H 1.6 H Glucose 203 H 152 H D Calcium 8.4 8.1 L Cardiac Enzymes 11/21/24 11/21/24 11/22/24 Range/Units 15:53 18:27 01:13 Troponin I 0.114 H* 0.126 H* 0.098 H* (0.0-0.045) ng/mL 11/22/24 Range/Units 06:54 Troponin I Cancelled (0.0-0.045) ng/mL Liver Function 11/21/24 11/22/24 Range/Units 15:53 06:54 Total Bilirubin 0.7 0.7 (0.3-1.2) mg/dL AST 11 10 (0-34) U/L ALT < 7 L < 7 L (10-49) U/L Alkaline Phosphatase 78 66 (46-116) U/L Albumin 3.8 3.4 (3.4-4.8) gm/dL Urine 11/21/24 Range/Units 17:28 Urine Color Yellow (Lt Yel-Yel) Urine Clarity Clear (Clear/Hazy) Urine pH 6.0 (5.0-7.0) Ur Specific Dixie 1.028 (1.001-1.035) Urine Protein Negative (Neg - Trace) Urine Glucose (UA) Negative (Negative) Quality Measures Quality Measures none Advance care planning discussed with:: patient and child Medications Home Medications and Allergies Home Medications ?Medication ?Instructions ?Recorded ?Confirmed ?Type simvastatin 20 mg tablet 1 tab PO HS ##90 01/08/15 History gabapentin 300 mg capsule 300 mg PO DAILY 04/29/18 History tamsulosin 0.4 mg capsule (Flomax) 0.4 mg PO DAILY 12/31/23 History tramadol 50 mg tablet 50 mg PO Q6H 04/29/18 History vitamin B complex-vitamin C-folic 0.8 mg PO DAILY 04/0912/31/23 History acid 0.8 mg tablet (Dialyvite 800) amiodarone 200 mg tablet 200 mg PO QDAY 09/26/1812/08 History aspirin 81 mg tablet 81 mg PO QDAY 03/08/2212/30 History Held on 11/28/23. Instructions: Resume on 12/05/23. hold for one week. verify with on when to restart medication finasteride 5 mg tablet 5 mg PO QDAY 10/02/22 History fluticasone fur. 200 mcg-umeclid 1 inh inhalation QDAY 10/14/23 12/31/23 History 62.5 mcg-vilant 25 mcg inhalat.powder (Trelegy Ellipta) albuterol sulfate 90 mcg/actuation 2 puff inhalation Q 4-5H PRN 11/07/23 12/31/23 History aerosol inhaler cough/wheezing loratadine 10 mg tablet (Claritin) 10 mg PO QDAY PRN a llergies 11/07/23 12/31/23 History amitriptyline 50 mg tablet 50 mg PO QDAY 11/28/23 06/10/30 History sacubitril 24 mg-valsartan 26 mg 1 tab PO DAILY 12/31/23 History tablet (Entresto) Allergies Allergy/AdvReac Type Severity Reaction Status Date / Time Penicillins Allergy Mild rash Verified 11/21/24 15:29 Visit Medications Acetaminophen (Acetaminophen 325 Mg Tablet) 650 mg PO Q6H PRN PRN Reason: Pain (1-3) & Fever >100.4 Stop: 12/21/24 20:45 Albuterol/Ipratropium (Albuterol/Ipratropium (Duoneb) Rt Val 3 Ml Nebu) 3 ml INH Q4HRRT PRN PRN Reason: SOB/Wheeze Stop: 12/21/24 22:59 Dextrose (Dextrose 50%-Water Inj 50 Ml Syringe) 25 ml IV Q15MIN PRN PRN Reason: BG 50-70 responsive npo pt Stop: 12/21/24 21:09 Dextrose (Dextrose 50%-Water Inj 50 Ml Syringe) 50 ml IV Q15MIN PRN PRN Reason: BG <50 OR BG <70 & pt unresponsive Stop: 12/21/24 21:09 Glucagon (Glucagon Inj 1 Mg Vial) 1 mg IM Q15MIN PRN PRN Reason: BG <70, and no IV access Insulin Human Lispro (Insulin Lispro (Admelog) 1 Unit/0.01 Ml Unit) 0 unit SC AC WENDY; Protocol Stop: 12/22/24 07:29 Last Admin: 11/22/24 08:02 Dose: Not Given Ondansetron HCl (Ondansetron Inj 2 Mg/Ml Inj 2 Ml) 4 mg IV Q6H PRN; Protocol PRN Reason: NAUSEA OR VOMITING Stop: 12/21/24 20:45 Pantoprazole Sodium (Pantoprazole Inj 40 Mg Vial) 40 mg IVP Q12HR WENDY Stop: 12/21/24 20:59 Last Admin: 11/22/24 09:11 Dose: 40 mg Discontinued Medications Pantoprazole Sodium (Pantoprazole Inj 40 Mg Vial) 80 mg IV X1 ONE Stop: 11/21/24 18:51 Last Admin: 11/21/24 19:12 Dose: 80 mg Assessment & Plan Plan Patient is 84 years old male with past medical history of HFrEF 25% s/p TONGUE STITCHER-D placement, A-fib, CAD s/p CABG, CKD, COPD, diabetes type 2 presented to the ED due to GI bleed and was admitted for further evaluation and management. Patient was seen in cardiology office 3 days ago when his Eliquis was switched to Xarelto, he started new medication over the next day and developed bloody emesis with blood clots x 1, followed by black stools. #GI bleed in patient on anticoagulation. - Likely medication induced since patient was switched from Eliquis to Xarelto 3 days ago followed by bloody emesis and black stools. He is also taking aspirin. Plan: - Hold aspirin and Xarelto. - Continue Protonix 40 mg IV twice daily. - Follow GI recommendations and proceed with EGD. #HFrEF 25% s/p TONGUE STITCHER-D placement. - Echo from 2023 showed Dilated left ventricle with lateral dynnchrony and severe septak dyskinesis Estimated EF 25%, Normal RV size. Severe RV systolic dysfunction. Estiamted RVSP 31mmHg. Pacing wire present. - At home patient was on optimized GDM: Entresto, spironolactone, Bumex, dapagliflozin. His heart failure is well-controlled based on physical exam. Plan: - Resume GDMT according to patient's blood pressure and bleeding status when possible. - Fluid restriction with daily I&O and daily weights. #Hx of A-fib. - Patient has TONGUE STITCHER-D placed and is not on any rate control. Plan: - Continue holding Xarelto until GI workup. #CAD s/p CABG. -Patient is asymptomatic. At home taking aspirin and simvastatin. Plan: -Hold aspirin until GI workup. - Can resume simvastatin when possible. Management of other problems as per primary team. Plan of care discussed with attending Dr. Patel. Jay Aguillon MD, PGY 2. Disclaimer: This note was dictated by speech recognition. Minor errors in assurance sourcing manager may be present due to voice recognition software.
--- NOTE | 2024-11-22 11:41 | PC.CC ---
Patient is a 84 year-old male who presents to the hospital for GI Bleed. NELAWPriti made [id number] contact with patient. ASW introduced self, role, and reason for visit. Patient appeared alert and oriented to self, location, and situation. Patient was pleasant and engaged in initial assessment. Patient confirmed information on demographics and reports to living at home with his , Deepti Mims . Patient reports his primary medical decision maker in the event he is unable to make his own medical decision is his and secondary his son, AUGUSTINE Mims . At home patient ambulates independently and completes his own ADLs. Patient has oxygen at home when needed he uses 3L primarily at night. His primary care provider is Abilio Napoles and pharmacy of choice is [facility]. Upon discharge patient plans to return home. services account manager to follow up with any discharge needs.
[2024-11-22] MEDS: INSULIN LISPRO (AdmeLOG) 1 UNIT/0.01 ML UNIT SC (12:01)
[2024-11-23] VITALS (9 sets, daily range): BP systolic 125–153; BP diastolic 63–77; PULSE 70–72; RESP 12–20; TEMP 36.1–36.7; O2SAT 97–100; BMI 29.4
[2024-11-23 06:03] LABS: Basophils # (Auto) 0.1 Thou/mm3 (0.0-0.2); Basophils % (Auto) 1 % (0-2.5); Eosinophils # (Auto) 0.2 Thou/mm3 (0.0-0.5); Eosinophils % (Auto) 2 % (0-10); Hematocrit 27.5 % (41.0-53.0); Hemoglobin 9.1 g/dL (13.5-16.0); Immature Granulocytes % (Auto) 0 % (0-0); Immature Granulocytes Auto 0.05 Thou/mm3 (0.00-0.00); Lymphocytes # (Auto) 3.3 Thou/mm3 (1.0-4.8); Lymphocytes % (Auto) 26 % (10-50); Mean Corpuscular HGB Conc 33.1 g/dl (31.0-37.0); Mean Corpuscular Volume 94 fL (80-100); Monocytes # (Auto) 1.1 Thou/mm3 (0.0-0.8); Monocytes % (Auto) 9 % (0-12); Neutrophils # (Auto) 7.8 Thou/mm3 (1.8-7.7); Neutrophils % (Auto) 62 % (37-80); Nucleated Red Blood Cell % 0 /100 WBC (0); Platelet Count 203 Thou/mm3 (140-440); RDW Standard Deviation 47.7 fL (35.1-43.9); Red Blood Count 2.94 Miln/mm3 (4.50-5.90); White Blood Count 12.6 Thou/mm3 (3.8-10.6)
[2024-11-23 06:08] LABS: INR 1.1 (0.9-1.3); Prothrombin Time 11.9 Seconds (9.0-12.2)
--- NOTE | 2024-11-23 06:45 | PD.RESPRO ---
Documentation for date of: 11/23/24 Subjective Subjective Interval history: 11/23/2024: Patient is status post EGD with finding of large 2.5 cm polyp in body of stomach. GI is initiated transfer to [facility] for resection of this polyp which is deemed to be cause of the UGI bleed. Exam Vital Signs Temp Pulse Resp BP Pulse Ox O2 Del Method O2 Flow Rate 97.9 F 70 13 137/77 H 99 Nasal Cannula 2 11/23/24 04:00 11/23/24 06:41 11/23/24 06:41 11/23/24 04:00 11/23/24 06:41 11/23/24 04:00 11/23/24 06:41 Narrative Exam Physical Exam: GENERAL: Awake, answering questions appropriately, appears stated age HEENT: NC/AT. Moist mucosa. PERRLA/EOMI. CARDIO: Heart RRR, no obvious murmurs, no JVD. PULM: No coughing or visible SOB. Lungs CTA B/L. GI: Abdomen soft, mild tenderness to palpation hypogastric region. Borborygmi apparent, no rebound or guarding noted SKIN/MSK/EXT: No wounds/discoloration/rashes/edema/amputations noted. +Pedal pulses present B/L. NEURO: Oriented x3, Moves extremities x4, no focal neurologic deficits noted Objective Labs 11/23/24 05:05 11/23/24 05:05 Labs: Laboratory Results - last 24 hr 11/22/24 11/23/24 06:54 05:05 WBC 13.9 H 12.6 H RBC 3.03 L 2.94 L Hgb 9.3 L 9.1 L Hct 27.8 L 27.5 L MCV 92 94 MCH 30.7 31.0 MCHC 33.5 33.1 RDW Std Deviation 47.3 H 47.7 H Plt Count 189 D 203 Neut % (Auto) 69 62 Lymph % (Auto) 21 26 Stone % (Auto) 8 9 Eos % (Auto) 1 2 Baso % (Auto) 1 1 Neut # (Auto) 9.6 H 7.8 H Lymph # (Auto) 3.0 3.3 Stone # (Auto) 1.0 H 1.1 H Eos # (Auto) 0.2 0.2 Baso # (Auto) 0.1 0.1 Immature Gran # (Auto) 0.04 H 0.05 H Absolute Nucleated RBC 0.00 0.00 Immature Gran % 0 0 Nucleated RBC % 0 0 PT 12.9 H 11.9 INR 1.2 1.1 APTT 25.4 Sodium 143 Potassium 4.4 Chloride 112 H Carbon Dioxide 22.0 Anion Gap 9 BUN 45 H Creatinine 1.6 H Estim Creat Clear Calc 38.0 L eGFR 42 L BUN/Creatinine Ratio 28 H Glucose [address] Glu mg/dL 111 Hemoglobin A1c 5.5 Calculated Osmolality 299 H Calcium 8.1 L Corrected Calcium 8.6 Phosphorus 2.9 Magnesium 2.0 Total Bilirubin 0.7 AST 10 ALT < 7 L Alkaline Phosphatase 66 Troponin I Cancelled Total Protein 5.1 L Albumin 3.4 Globulin 1.7 L Albumin/Globulin Ratio 2.0 Triglycerides 100 Cholesterol 106 L LDL Cholesterol, Calc 50 HDL Cholesterol 36 L Cholesterol/HDL Ratio 2.9 L TSH 0.48 L Quality Measures Quality Measures none Assessment & Plan Assessment Current Active Medications: Generic Name Dose Route Start Last Admin Trade Name Freq PRN Reason Stop Dose Admin Acetaminophen 650 mg 11/21/24 20:46 Acetaminophen 325 Mg Tablet PO 12/21/24 20:45 Q6H PRN Pain (1-3) & Fever >100.4 Albuterol/Ipratropium 3 ml 11/21/24 21:06 Albuterol/Ipratropium (Duoneb) Rt Val 3 Ml Nebu INH 12/21/24 22:59 Q4HRRT PRN SOB/Wheeze Dextrose 25 ml 11/21/24 21:10 Dextrose 50%-Water Inj 50 Ml Syringe IV 12/21/24 21:09 Q15MIN PRN BG 50-70 responsive npo pt Dextrose 50 ml 11/21/24 21:10 Dextrose 50%-Water Inj 50 Ml Syringe IV 12/21/24 21:09 Q15MIN PRN BG <50 OR BG <70 & pt unresponsive Glucagon 1 mg 11/21/24 21:10 Glucagon Inj 1 Mg Vial IM Q15MIN PRN BG <70, and no IV access Insulin Human Lispro 0 unit 11/22/24 07:30 11/22/24 12:01 Insulin Lispro (Admelog) 1 Unit/0.01 Ml Unit SC 12/22/24 07:29 1 unit AC WENDY Administration Protocol Labetalol HCl 10 mg 11/22/24 21:00 Labetalol Inj 5 Mg/Ml Vial 20 Ml IVP 12/22/24 21:59 Q4HR PRN SBP > 170 Ondansetron HCl 4 mg 11/21/24 20:46 Ondansetron Inj 2 Mg/Ml Inj 2 Ml IV 12/21/24 20:45 Q6H PRN NAUSEA OR VOMITING Protocol Pantoprazole Sodium 40 mg 11/21/24 21:00 11/22/24 21:00 Pantoprazole Inj 40 Mg Vial IVP 12/21/24 20:59 40 mg Q12HR WENDY Administration
[2024-11-23 06:48] LABS: Alanine Aminotransferase < 7 U/L (10-49); Albumin, Serum 3.5 gm/dL (3.4-4.8); Albumin/Globulin Ratio 2.3 (1.2-2.2); Alkaline Phosphatase 66 U/L (46-116); Anion Gap 11 (7-16); Aspartate Amino Transferase 12 U/L (0-34); BUN/Creatinine Ratio 33 Ratio (12-20); Bilirubin,Total 0.7 mg/dL (0.3-1.2); Blood Urea Nitrogen 49 mg/dL (9-23); Calcium 8.3 mg/dL (8.3-10.6); Calcium (Corrected) 8.7 mg/dL (8.5-10.1); Carbon Dioxide 23.2 mMol/L (20.0-31.0); Chloride 111 mMol/L (98-107); Creatinine (Component) 1.5 mg/dL (0.6-1.3); Estimated Creatinine Clearance 40.5 mL/min (>60); Globulin 1.5 gm/dL (2.3-3.5); Glucose 125 mg/dL (74-106); Magnesium 2.1 mg/dL (1.6-2.6); Osmolality,Calculated 302 (275-295); Phosphorous 3.4 mg/dL (2.4-5.1); Potassium 4.3 mMol/L (3.4-5.1); Sodium 145 mMol/L (136-145); eGFR 45 See Note
--- NOTE | 2024-11-23 07:00 | ESDS_ITS ---
<Statement entered by Desmond Moore MD - 11/27/24 16:24> I reviewed above note and agree with findings and plans. I have also personally examined the patient with medicine team and went over assessment and plan with medical team including post graduate intern and resident physician. Planned Discharge Date 11/23/24 DS: Providers Provider Date of admission: 11/21/24 20:46 Primary care physician: Abilio Napoles MD Admitting Provider: Bud Tanner MD Attending Provider on Admission: Bud Tanner MD Consults: 11/21/24 18:50 Consult to Gastroenterology Stat Comment: Upper GI bleed Consulting Provider: Cindy Higgins 11/21/24 20:52 Consult to Cardiology Routine Comment: Established Patient Consulting Provider: Kimberly Patel Attending Provider on DC: Melchor Saucedo MD Discharging Provider: Melchor Saucedo MD DS: Diagnosis Problem List Completed Was Problem List Reviewed/Reconciled?: Yes Hospital Course Hospital Course Hospital course: 84-year-old male with past medical history of congestive heart failure with reduced ejection fraction, EF 25% 11/2023 status post DIRECTOR OF VOCATIONAL TRAINING-D placement, chronic kidney disease, chronic obstructive pulmonary disease, atrial fibrillation, BPH, coronary artery disease status post cardiac bypass who presented to [facility] emergency department on 11/21/2024 with a chief complaint of GI bleed. Patient admitted for further workup. #Acute GI bleed, likely upper #History of gastric ulcer Patient was recently switched from Eliquis to Xarelto, had 1 episode of bloody emesis, also complains of dark stools. Patient's hemoglobin normally within the range of 13?14, presented with hemoglobin of 11, otherwise hemodynamically stable. Does have history of gastric ulcer in the past. Plan: EGD scheduled with GI Protonix 40 IV twice daily Started clear liquid diet x 1 Monitor vitals closely Transfuse if hemoglobin less than 7 GI consulted, appreciate recommendations #Elevated Troponin, Type II likely Patient denies any chest pain, on presentation troponin 0.114 -> 0.126 => 0.098 EKG shows pacemaker rhythm Trended troponins until they peaked and downtrend Plan: Monitor for chest pain #Chronic Kidney Disease stage IIIb Patient has CKD, baseline creatinine in the range of 1.6-1.8, baseline GFR in the range 34-42, was recently referred to nephrology Plan: Renally dose medication Avoid nephrotoxic agents Monitor renal function in a.m. #COPD, by history Patient has history of COPD, uses inhalers at home, currently not in any exacerbation Plan: DuoNeb as needed #Benign Prostate Hypertrophy Has history of BPH, follows Dr. Pratt, pending med reconciliation Plan: Will restart home medications when appropriate #Atrial Fibrillation, by history #Congestive heart failure with re duced ejection fraction, EF 25% 11/2023 #Status post DIRECTOR OF VOCATIONAL TRAINING-D placement #Coronary artery disease status post cardiac bypass Patient's cardiac catheterization and DIRECTOR OF VOCATIONAL TRA[employer]ING-D placement note from November 2023 shows bypass grafts patent, echo did show severe lateral wall dyssynchrony severe akinesis at septum, does have ischemic cardiomyopathy, ejection fraction 25%. Lipid panel unremarkable, LDL 50, total cholesterol 106, triglycerides 100 and HDL 36 Plan: Will restart GDMT when appropriate Hold anticoagulation for now, patient was recently switched to Xarelto from [facility] Clamp Carrier Operator Dr. Patel consulted, appreciate recommendations Hospital Management: DVT prophylaxis: SCDs GI prophylaxis: Protonix 40mg BID Diet: Clear liquid x 1 prior to procedure Lines: Peripheral IV Dispo: Pending EGD with Dr. Higgins Code status: Full Code Patient seen and assessed with attending Dr. Moore #Acute GI bleed, likely upper #History of gastric ulcer #Elevated Troponin, Type II likely #Chronic Kidney Disease stage IIIb #COPD, by history #Benign Prostate Hypertrophy #Atrial Fibrillation, by history #Congestive heart failure with reduced ejection fraction, EF 25% 11/2023 #Status post DIRECTOR OF VOCATIONAL TRAINING-D placement #Coronary artery disease status post cardiac bypass Patient found to have a 2.5 cm ulcer in body of stomach during EGD procedure with GI. Per GI recommendations; patient will require transfer to [facility] for resection of this ulcer. Patient to follow the following the recommendations on discharge/transfer: Follow-up with PCP within 1 week after discharge Follow-up with barn manager, Dr. Patel, within 1 week after discharge Follow-up with nephrology, Dr. Lam, within 1-2 weeks after discharge Continue all home medications as prescribed If your symptoms worsen or if you develop new chest pain, shortness of breath, severe abdominal pain or dizziness - please come back to the ED immediately. Melchor Saucedo, PGY-1 Status at Discharge Overall status at discharge: patient is progressing back to baseline Time Spent with Patient Time attestation: Total time spent providing and/or coordinating discharge services: 45 minutes Time spent: Greater than 30 minutes Exam Vital Signs Temp Pulse Resp BP Pulse Ox O2 Del Method O2 Flow Rate 97.9 F 70 13 137/77 H 99 Nasal Cannula 2 11/23/24 04:00 11/23/24 06:41 11/23/24 06:41 11/23/24 04:00 11/23/24 06:41 11/23/24 04:00 11/23/24 06:41 Narrative Exam Physical Exam: GENERAL: Awake, answering questions appropriately, appears stated age HEENT: NC/AT. Moist mucosa. PERRLA/EOMI. CARDIO: Heart RRR, no obvious murmurs, no JVD. PULM: No coughing or visible SOB. Lungs CTA B/L. GI: Abdomen soft, mild tenderness to palpation hypogastric region. Borborygmi apparent, no rebound or guarding noted SKIN/MSK/EXT: No wounds/discoloration/rashes/edema/amputations noted. +Pedal pulses present B/L. NEURO: Oriented x3, Moves extremities x4, no focal neurologic deficits noted Discharge Plan Plan Patient Disposition: HOME (Self Care) Patient condition on transfer: Stable Care Plan Goals: Follow-up with PCP within 1 week after discharge Follow-up with barn manager, Dr. Patel, within 1 week after discharge Follow-up with nephrology, Dr. Lam, within 1-2 weeks after discharge Continue all home medications as prescribed If your symptoms worsen or if you develop new chest pain, shortness of breath, severe abdominal pain or dizziness - please come back to the ED immediately. Prescriptions/Referrals Prescriptions/Med Rec: Continued finasteride 5 mg tablet 5 mg PO QDAY simvastatin 20 MG tablet 1 tab PO HS Qty: 90 tramadol 50 mg Tablet 50 mg PO Q6H PRN (Reason: pain) Rx Instructions: every 6-8 hours PRN tamsulosin [Flomax] 0.4 mg Capsule 0.4 mg PO DAILY gabapentin 300 mg Capsule 300 mg PO TID Dialyvite 800 0.8 mg Tablet 0.8 mg PO DAILY amiodarone 200 mg tablet 200 mg PO QDAY levalbuterol tartrate [Xopenex HFA] 45 mcg/actuation HFA aerosol inhaler 2 inh INH Q6H Qty: 15 0RF aspirin 81 mg Tablet 81 mg PO QDAY Trelegy Ellipta 200-62.5-25 mcg Blister With Device 1 inh INHALATION QDAY dapagliflozin propanediol [Farxiga] 10 mg tablet 10 mg PO QAM Qty: 30 0RF bumetanide 1 mg tablet 1 mg PO QDAY Qty: 30 0RF spironolactone 25 mg tablet 25 mg PO QDAY Qty: 30 0RF albuterol sulfate 90 mcg/actuation Hfa Aerosol Inhaler 2 puff INHALATION Q4-5H PRN (Reason: cough/wheezing) loratadine [Claritin] 10 mg Tablet 10 mg PO QDAY PRN (Reason: allergies) amitriptyline 50 mg Tablet 50 mg PO QDAY Entresto 24-26 mg Tablet 1 tab PO DAILY No Action eplerenone 25 mg tablet 25 mg PO QDAY Patient Comments: TAKE 1 TABLET BY MOUTH DAILY multivitamin [Daily Multi-Vitamin] Tablet 1 tab PO QAM Januvia 100 mg tablet 100 mg PO QDAY Referrals: Abilio Napoles MD [Primary Care Provider] - Cindy Higgins MD [Physician] - Kimberly Patel MD [Physician] - Dale Lam MD [Physician] - Patient/Caregiver Discharge Instructions Education Materials: Bleeding Gastrointestinal, Anatomy of the Digestive System Print Language: Turkmen Stand Alone Forms: Radha Award Info., Patient Portal Info Letter Quality Discharge Quality Measures VTE prophylaxis
--- NOTE | 2024-11-23 07:30 | PC.SS ---
Follow up note: SS spoke to physician team and they are requesting a transfer to higher level of care. Orders placed. Transfer nurse to follow
[2024-11-23] MEDS: SUCRALFATE 1 GM TABLET PO ×4 (07:34→20:09)
[2024-11-23] MEDS: PANTOPRAZOLE INJ 40 MG VIAL IVP ×2 (07:34→20:10)
--- NOTE | 2024-11-23 07:41 | PC.CC ---
Addendum entered by Chad Greer RN 11/23/24 19:00: 1850 received call from Fermin at [facility] that they are declining the transfer due to capacity. Informed Fermin that transfer is canceled and per our GI Dr. Higgins, pt will be having his procedure on by Dr. Licona at [facility]. and his office will work on establishing the pt with [facility] for procedure. [address] Hussein and she stated she spoke to Dr. Higgins. I informed her Dr. Higgins called me and I am aware about the plan. [address] Higgins. He stated that he spoke to Dr. Livan AVILES at [facility] and pt will be having his procedure on at [facility]. He stated [facility] doesn't have beds and this way will be faster for the pt. The plan is to discharge the pt tomorrow, off blood thinners and his office will work on establishing the pt with [facility] for transfer. Got orders to cancel the transfer. Addendum entered by Chad Greer RN 11/23/24 17:43: [address] Hussein/ pt PCP for update on the transfer. Dr. Hussein stated she will try to call his colleague at [facility] to see if he can accept the pt. If he can then she will speak to Dr. Higgins regarding that and let me know. Direct number provided for transfer center. Addendum entered by Chad Greer RN 11/23/24 16:46: 1646 [employer] system is back again. clinicals faxed to [facility]. Addendum entered by Chad Greer RN 11/23/24 16:13: 1345 I am unable to log into my work email via hotspot in order to send clinicals to [facility]. 1341 received call from Fermin at [facility], she provided me with the email to send clinicals which is [email or web address] Addendum entered by Chad Greer RN 11/23/24 16:10: 0956 called [facility], spoke toElif and initiated the transfer. I informed her that our system is down today including fax. But I can send clinicals via email. She stated she has to lock all the faxes and then call me back on when to send the email for clinicals.? [id number] Higgins regarding transferring the pt to [facility]. He stated he is working on it and OK for me to reach out to [facility].? Original Note: [id number] Moore, pt needs to be transferred to [facility] for resection of 2.5 cm ulcer in body of stomach. Dr. Moore stated that Dr. Higgins already spoke to Dr. Licona.
--- NOTE | 2024-11-23 16:36 | PC.NURSE ---
[facility]24 from 0900 to 1615.
--- NOTE | 2024-11-23 21:38 | PD.IMPROG ---
Documentation for date of: 11/23/24 Subjective Subjective Interval history: Spoke with our transfer center here and spoke with Dr. Ascencio Director of endoscopy at [facility] Plan is to discharge the patient tomorrow He will speak to the patient via videoconference Procedure that is upper endoscopy resection of the fundic mass scheduled for Patient is to stay off the blood thinners till that point till the procedure is done then he can start back on it I discussed the plan with the patient As well as her primary care physician Dr. Napoles Exam Vital Signs Temp Pulse Resp BP Pulse Ox O2 Del Method O2 Flow Rate 96.9 F 70 17 140/66 H 98 Room Air 2 11/23/24 20:00 11/23/24 20:00 11/23/24 20:00 11/23/24 20:00 11/23/24 20:00 11/23/24 20:00 11/23/24 06:41 Objective Labs 11/23/24 05:05 11/23/24 05:05 Labs: Laboratory Results - last 24 hr 11/23/24 05:05 WBC 12.6 H RBC 2.94 L Hgb 9.1 L Hct 27.5 L MCV 94 MCH 31.0 MCHC 33.1 RDW Std Deviation 47.7 H Plt Count 203 Neut % (Auto) 62 Lymph % (Auto) 26 [place] % (Auto) 9 Eos % (Auto) 2 Baso % (Auto) 1 Neut # (Auto) 7.8 H Lymph # (Auto) 3.3 [place] # (Auto) 1.1 H Eos # (Auto) 0.2 Baso # (Auto) 0.1 Immature Gran # (Auto) 0.05 H Absolute Nucleated RBC 0.00 Immature Gran % 0 Nucleated RBC % 0 PT 11.9 INR 1.1 Sodium 145 Potassium 4.3 Chloride 111 H Carbon Dioxide 23.2 Anion Gap 11 BUN 49 H Creatinine 1.5 H Estim Creat Clear Calc 40.5 L eGFR 45 L BUN/Creatinine Ratio 33 H Glucose 125 H Calculated Osmolality 302 H Calcium 8.3 Corrected Calcium 8.7 Phosphorus 3.4 Magnesium 2.1 Total Bilirubin 0.7 AST 12 ALT < 7 L Alkaline Phosphatase 66 Total Protein 5.0 L Albumin 3.5 Globulin 1.5 L Albumin/Globulin Ratio 2.3 H Impressions Impression: Upper GI bleed secondary to large ulcerated mass/polyp in the fundic portion Plan as in the HPI Assessment & Plan A&P Narrative # Hematemesis # Melena N.p.o. IV Protonix Consent obtained for fiberoptic esophagogastroduodenoscopy with possible therapeutic intervention possible biopsy under intravenous moderate sedation Scheduled for tomorrow Serial CBC Hold of the Cee Other medical problems include Cardiac arrhythmias requiring pacemaker/defibrillator Coronary artery disease status post CABG Elevated troponin Thank you very much for the opportunity to participate in the care of this patient Time Spent With Patient Time: Total time spent is greater than 50% in coordination of care (as documented) at patient's floor/unit and/or counseling patient:
[2024-11-24] VITALS: BP 138/73; PULSE 82; RESP 14; TEMP 36.3; O2SAT 100
[2024-11-24 04:00] VITALS: BP 155/70; PULSE 80; RESP 21; TEMP 36.1; O2SAT 100
[2024-11-24 06:00] VITALS: BMI 29.3
[2024-11-24 06:00] LABS: Basophils # (Auto) 0.1 Thou/mm3 (0.0-0.2); Basophils % (Auto) 1 % (0-2.5); Eosinophils # (Auto) 0.3 Thou/mm3 (0.0-0.5); Eosinophils % (Auto) 3 % (0-10); Hematocrit 26.7 % (41.0-53.0); Hemoglobin 8.9 g/dL (13.5-16.0); Immature Granulocytes % (Auto) 0 % (0-0); Immature Granulocytes Auto 0.04 Thou/mm3 (0.00-0.00); Lymphocytes # (Auto) 3.3 Thou/mm3 (1.0-4.8); Lymphocytes % (Auto) 33 % (10-50); Mean Corpuscular HGB Conc 33.3 g/dl (31.0-37.0); Mean Corpuscular Hemoglobin 31.2 pg (25.0-35.0); Mean Corpuscular Volume 94 fL (80-100); Monocytes # (Auto) 0.9 Thou/mm3 (0.0-0.8); Monocytes % (Auto) 9 % (0-12); Neutrophils # (Auto) 5.4 Thou/mm3 (1.8-7.7); Neutrophils % (Auto) 54 % (37-80); Nucleated Red Blood Cell % 0 /100 WBC (0); Platelet Count 214 Thou/mm3 (140-440); Red Blood Count 2.85 Miln/mm3 (4.50-5.90)
[2024-11-24 06:21] LABS: INR 1.1 (0.9-1.3)
[2024-11-24 07:17] VITALS: PULSE 70; RESP 18; O2SAT 100
[2024-11-24] MEDS: SUCRALFATE 1 GM TABLET PO ×2 (07:35→11:38)
[2024-11-24 07:54] VITALS: BP 143/81; PULSE 72; RESP 17; TEMP 36.1; O2SAT 99
[2024-11-24 08:00] VITALS: PULSE 72
[2024-11-24] MEDS: PANTOPRAZOLE INJ 40 MG VIAL IVP (08:29)
[2024-11-24] MEDS: SACUBITRIL 24 MG/VALSARTAN 26 MG TABLET 1 TAB PO (08:29)
[2024-11-24] MEDS: FINASTERIDE 5 MG TABLET PO (08:29)
[2024-11-24] MEDS: TAMSULOSIN HCL 0.4 MG CAPSULE PO (08:30)
[2024-11-24 08:56] LABS: Alanine Aminotransferase < 7 U/L (10-49); Albumin, Serum 3.4 gm/dL (3.4-4.8); Alkaline Phosphatase 66 U/L (46-116); Anion Gap 6 (7-16); Aspartate Amino Transferase 11 U/L (0-34); BUN/Creatinine Ratio 21 Ratio (12-20); Bilirubin,Total 0.8 mg/dL (0.3-1.2); Blood Urea Nitrogen 31 mg/dL (9-23); Calcium 8.2 mg/dL (8.3-10.6); Calcium (Corrected) 8.7 mg/dL (8.5-10.1); Carbon Dioxide 24.8 mMol/L (20.0-31.0); Chloride 112 mMol/L (98-107); Creatinine (Component) 1.5 mg/dL (0.6-1.3); Estimated Creatinine Clearance 40.5 mL/min (>60); Globulin 1.7 gm/dL (2.3-3.5); Glucose 116 mg/dL (74-106); Magnesium 2.2 mg/dL (1.6-2.6); Osmolality,Calculated 292 (275-295); Phosphorous 3.6 mg/dL (2.4-5.1); Potassium 4.3 mMol/L (3.4-5.1); Sodium 143 mMol/L (136-145); Total Protein 5.1 gm/dL (5.7-8.2); eGFR 45 See Note
--- NOTE | 2024-11-24 09:18 | ESPR_ITS ---
Documentation for date of: 11/24/24 Subjective Subjective Interval history: Evaluated the patient All arrangements are made at [facility] to send the paperwork there my office is working Exam Vital Signs Temp Pulse Resp BP Pulse Ox O2 Del Method O2 Flow Rate 97.0 F 72 17 143/81 H 99 Nasal Cannula 3 11/24/24 07:54 11/24/24 07:54 11/24/24 07:54 11/24/24 07:54 11/24/24 07:54 11/24/24 07:54 11/24/24 07:54 Objective Labs 11/24/24 05:20 11/24/24 05:20 Labs: Laboratory Results - last 24 hr 11/24/24 05:20 WBC 10.0 RBC 2.85 L Hgb 8.9 L Hct 26.7 L MCV 94 MCH 31.2 MCHC 33.3 RDW Std Deviation 47.0 H Plt Count 214 Neut % (Auto) 54 Lymph % (Auto) 33 [place] % (Auto) 9 Eos % (Auto) 3 Baso % (Auto) 1 Neut # (Auto) 5.4 Lymph # (Auto) 3.3 [place] # (Auto) 0.9 H Eos # (Auto) 0.3 Baso # (Auto) 0.1 Immature Gran # (Auto) 0.04 H Absolute Nucleated RBC 0.00 Immature Gran % 0 Nucleated RBC % 0 PT 12.0 INR 1.1 Sodium 143 Potassium 4.3 Chloride 112 H Carbon Dioxide 24.8 Anion Gap 6 L BUN 31 H Creatinine 1.5 H Estim Creat Clear Calc 40.5 L eGFR 45 L BUN/Creatinine Ratio 21 H Glucose 116 H Calculated Osmolality 292 Calcium 8.2 L Corrected Calcium 8.7 Phosphorus 3.6 Magnesium 2.2 Total Bilirubin 0.8 AST 11 ALT < 7 L Alkaline Phosphatase 66 Total Protein 5.1 L Albumin 3.4 Globulin 1.7 L Albumin/Globulin Ratio 2.0 Impressions Impression: Upper GI bleed secondary to large polyp in the fundic portion of the stomach Upper endoscopy with EMR resection at [facility] on Assessment & Plan A&P Narrative # Hematemesis # Melena N.p.o. IV Protonix Consent obtained for fiberoptic esophagogastroduodenoscopy with possible therapeutic intervention possible biopsy under intravenous moderate sedation Scheduled for tomorrow Serial CBC Hold of the Cee Other medical problems include Cardiac arrhythmias requiring pacemaker/defibrillator Coronary artery disease status post CABG Elevated troponin Thank you very much for the opportunity to participate in the care of this patient Time Spent With Patient Time: Total time spent is greater than 50% in coordination of care (as documented) at patient's floor/unit and/or counseling patient:
--- NOTE | 2024-11-24 09:48 | ESPR_ITS ---
<Statement entered by Desmond Moore MD - 11/27/24 16:25> I reviewed above note and agree with findings and plans. I have also personally examined the patient with medicine team and went over assessment and plan with medical team including software developer intern and resident physician. Documentation for date of: 11/24/24 Subjective Subjective Interval history: 11/24/2024: No acute overnight events to report. Patient seen and examined in hospital bed reports resolution of presenting symptoms and denies having any concerning symptoms at this time. GI specialist, Dr. Higgins, has explained to the patient that he will need close follow-up with GI specialist from [facility] for video conference appointment regarding the patient's 2.5 cm stomach ulcer which will need excision. Patient will not require transfer at this time and instead will follow-up with video conference appointment as scheduled. Exam Vital Signs Temp Pulse Resp BP Pulse Ox O2 Del Method O2 Flow Rate 97.0 F 72 17 143/81 H 99 Nasal Cannula 3 11/24/24 07:54 11/24/24 07:54 11/24/24 07:54 11/24/24 07:54 11/24/24 07:54 11/24/24 07:54 11/24/24 07:54 Narrative Exam Physical Exam: GENERAL: Awake, answering questions appropriately, appears stated age HEENT: NC/AT. Moist mucosa. PERRLA/EOMI. CARDIO: Heart RRR, no obvious murmurs, no JVD. PULM: No coughing or visible SOB. Lungs CTA B/L. GI: Abdomen soft, nontender and nondistended. Borborygmi apparent, no rebound or guarding noted SKIN/MSK/EXT: No wounds/discoloration/rashes/edema/amputations noted. +Pedal pulses present B/L. NEURO: Oriented x3, Moves extremities x4, no focal neurologic deficits noted Objective Labs 11/24/24 05:20 11/24/24 05:20 Labs: Laboratory Results - last 24 hr 11/24/24 05:20 WBC 10.0 RBC 2.85 L Hgb 8.9 L Hct 26.7 L MCV 94 MCH 31.2 MCHC 33.3 RDW Std Deviation 47.0 H Plt Count 214 Neut % (Auto) 54 Lymph % (Auto) 33 [place] % (Auto) 9 Eos % (Auto) 3 Baso % (Auto) 1 Neut # (Auto) 5.4 Lymph # (Auto) 3.3 [place] # (Auto) 0.9 H Eos # (Auto) 0.3 Baso # (Auto) 0.1 Immature Gran # (Auto) 0.04 H Absolute Nucleated RBC 0.00 Immature Gran % 0 Nucleated RBC % 0 PT 12.0 INR 1.1 Sodium 143 Potassium 4.3 Chloride 112 H Carbon Dioxide 24.8 Anion Gap 6 L BUN 31 H Creatinine 1.5 H Estim Creat Clear Calc 40.5 L eGFR 45 L BUN/Creatinine Ratio 21 H Glucose 116 H Calculated Osmolality 292 Calcium 8.2 L Corrected Calcium 8.7 Phosphorus 3.6 Magnesium 2.2 Total Bilirubin 0.8 AST 11 ALT < 7 L Alkaline Phosphatase 66 Total Protein 5.1 L Albumin 3.4 Globulin 1.7 L Albumin/Globulin Ratio 2.0 Quality Measures Quality Measures VTE prophylaxis Advance care planning discussed with:: patient Assessment & Plan Assessment Current Active Medications: Generic Name Dose Route Start Last Admin Trade Name Freq PRN Reason Stop Dose Admin Acetaminophen 650 mg 11/21/24 20:46 Acetaminophen 325 Mg Tablet PO 12/21/24 20:45 Q6H PRN Pain (1-3) & Fever >100.4 Albuterol/Ipratropium 3 ml 11/21/24 21:06 Albuterol/Ipratropium (Duoneb) Rt Val 3 Ml Nebu INH 12/21/24 22:59 Q4HRRT PRN SOB/Wheeze Dextrose 25 ml 11/21/24 21:10 Dextrose 50%-Water Inj 50 Ml Syringe IV 12/21/24 21:09 Q15MIN PRN BG 50-70 responsive npo pt Dextrose 50 ml 11/21/24 21:10 Dextrose 50%-Water Inj 50 Ml Syringe IV 12/21/24 21:09 Q15MIN PRN BG <50 OR BG <70 & pt unresponsive Finasteride 5 mg 11/24/24 09:00 11/24/24 08:29 Finasteride 5 Mg Tablet PO 12/24/24 08:59 5 mg QDAY WENDY Administration Glucagon 1 mg 11/21/24 21:10 Glucagon Inj 1 Mg Vial IM Q15MIN PRN BG <70, and no IV access Insulin Human Lispro 0 unit 11/22/24 07:30 11/24/24 07:05 Insulin Lispro (Admelog) 1 Unit/0.01 Ml Unit SC 12/22/24 07:29 Not Given AC WENDY Protocol Labetalol HCl 10 mg 11/22/24 21:00 Labetalol Inj 5 Mg/Ml Vial 20 Ml IVP 12/22/24 21:59 Q4HR PRN SBP > 170 Ondansetron HCl 4 mg 11/21/24 20:46 Ondansetron Inj 2 Mg/Ml Inj 2 Ml IV 12/21/24 20:45 Q6H PRN NAUSEA OR VOMITING Protocol Pantoprazole Sodium 40 mg 11/21/24 21:00 11/24/24 08:29 Pantoprazole Inj 40 Mg Vial IVP 12/21/24 20:59 40 mg Q12HR WENDY Administration Sacubitril/Valsartan 1 tab 11/24/24 09:00 11/24/24 08:29 Sacubitril 24 Mg/Valsartan 26 Mg Tablet PO 12/24/24 08:59 1 tab DAILY WENDY Administration Sucralfate 1 gm 11/23/24 07:30 11/24/24 07:35 Sucralfate 1 Gm Tablet PO 12/23/24 07:29 1 gm ACHS WENDY Administration Tamsulosin HCl 0.4 mg 11/24/24 09:00 11/24/24 08:30 Tamsulosin Hcl 0.4 Mg Capsule PO 12/24/24 08:59 0.4 mg DAILY WENDY Administration Plan 84-year-old male with past medical history of congestive heart failure with reduced ejection fraction, EF 25% 11/2023 status post SEARCH SPECIALIST-D placement, chronic kidney disease, chronic obstructive pulmonary disease, atrial fibrillation, BPH, coronary artery disease status post cardiac bypass who presented to [facility] emergency department on 11/21/2024 with a chief complaint of GI bleed. Patient admitted for further workup. #Acute GI bleed, likely upper #History of gastric ulcer Patient was recently switched from Eliquis to Xarelto, had 1 episode of bloody emesis, also complains of dark stools. Patient's hemoglobin normally within the range of 13?14, presented with hemoglobin of 11, otherwise hemodynamically stable. Does have history of gastric ulcer in the past. Plan: EGD scheduled with GI Protonix 40 IV twice daily Started clear liquid diet x 1 Monitor vitals closely Transfuse if hemoglobin less than 7 GI consulted, appreciate recommendations #Elevated Troponin, Type II likely Patient denies any chest pain, on presentation troponin 0.114 -> 0.126 => 0.098 EKG shows pacemaker rhythm Trended troponins until they peaked and downtrend Plan: Monitor for chest pain #Chronic Kidney Disease stage IIIb Patient has CKD, baseline creatinine in the range of 1.6-1.8, baseline GFR in the range 34-42, was recently referred to nephrology Plan: Renally dose medication Avoid nephrotoxic agents Monitor renal function in a.m. #COPD, by history Patient has history of COPD, uses inhalers at home, currently not in any exacerbation Plan: DuoNeb as needed #Benign Prostate Hypertrophy Has history of BPH, follows Dr. Pratt, pending med reconciliation Plan: Will restart home medications when appropriate #Atrial Fibrillation, by history #Congestive heart failure with reduced ejection fraction, EF 25% 11/2023 #Status post SEARCH SPECIALIST-D placement #Coronary artery disease status post cardiac bypass Patient's cardiac catheterization and SEARCH SPECIALIST-D placement note from November 2023 shows bypass grafts patent, echo did show severe lateral wall dyssynchrony severe akinesis at septum, does have ischemic cardiomyopathy, ejection fraction 25%. Lipid panel unremarkable, LDL 50, total cholesterol 106, triglycerides 100 and HDL 36 Plan: Will restart GDMT when appropriate Hold anticoagulation for now, patient was recently switched to Xarelto from [facility] Pet [address] Technologist Dr. Patel consulted, appreciate recommendations Hospital Management: DVT prophylaxis: SCDs GI prophylaxis: Protonix 40mg BID Diet: Clear liquid x 1 prior to procedure Lines: Peripheral IV Dispo: Pending EGD with Dr. Higgins Code status: Full Code Patient seen and assessed with attending Dr. Moore #Acute GI bleed, likely upper #History of gastric ulcer #Elevated Troponin, Type II likely #Chronic Kidney Disease stage IIIb #COPD, by history #Benign Prostate Hypertrophy #Atrial Fibrillation, by history #Congestive heart failure with reduced ejection fraction, EF 25% 11/2023 #Status post SEARCH SPECIALIST-D placement #Coronary artery disease status post cardiac bypass Patient found to have a 2.5 cm ulcer in body of stomach during EGD procedure with GI. Per GI recommendations; patient will require video conference appointment with [facility] for resection of this ulcer. Patient to follow the following the recommendations on discharge/transfer: You have a video conference appointment with Dr. Ascencio [facility] for Pancreatic Relafcgy[address] [place] [address], [address],?[place],?[place]?[address] telephone:[[phone]] Hold Spironolactone until you are seen by Dr. Patel, Cardiology Follow-up with PCP within 1 week after discharge Follow-up with hose seamer, Dr. Patel, within 1 week after discharge Follow-up with nephrology, Dr. Lam, within 1-2 weeks after discharge Continue all home medications as prescribed If your symptoms worsen or if you develop new chest pain, shortness of breath, severe abdominal pain or dizziness - please come back to the ED immediately. LPatient examined and case discussed with the team including attending physician. Note reviewed, I agree with the care plan as documented. Please refer to the note above and DC summary for further details. - Nnamdi Desouza MD, PGY 2 Disclaimer: The document may contain phonetic/typographic errors due to voice recognition software. These errors are purely due to imperfections in the software program and should not be misconstrued in any way to compromise the substance of the patient's medical care during this visit. L
[2024-11-24 12:00] VITALS: BP 129/65; PULSE 70; PULSE 72; RESP 19; TEMP 36; O2SAT 96
--- NOTE | 2024-11-24 12:13 | ESPR_ITS ---
<Statement entered by Kimberly Patel MD - 11/25/24 08:27> I personally evaluated examined the patient on telemetry floor continues to remain stable not have any further bleeding episodes Dr. Higgins is planning to arrange for [facility] transfer for removal of the gastric polyp. Hold off on anticoagulation for now patient remains in paced rhythm intermittent A- fib brief episodes only recorded on on the pacemaker interrogation. Patient is stable to have procedure at [facility] evaluate the patient with PGY 2 Dr. Thompson will keep monitoring the patient on telemetry for now Documentation for date of: 11/24/24 Subjective Subjective Interval history: Patient was seen and examined at bedside. No acute overnight events. Patient underwent endoscopy and was found to have 2.5 cm mass with bleeding ulcer, transfer was initiated to [facility] for endoscopic resection of the mass. Will hold all blood thinners as of now. Vitals are stable. Continue current management. Exam Vital Signs Temp Pulse Resp BP Pulse Ox O2 Del Method O2 Flow Rate 96.8 F 70 19 129/65 96 Room Air 3 11/24/24 12:00 11/24/24 12:00 11/24/24 12:00 11/24/24 12:00 11/24/24 12:00 11/24/24 12:00 11/24/24 07:54 Narrative Exam Gen: Well-developed and well-nourished elderly. HEENT: NCAT, PERRLA, EOMI, MMM, anicteric conjunctivae. CVS: normal S1 and S2. RRR. No M/R/G. Resp: CTA B/L. No rhonchi, rales, crackles or wheezing. Abd: soft, mildly tender, non-distended. BS+ in all 4 quadrants. MSK: Good ROM in BUE & BLE. No rash. Trace edema BLE. Neuro: CN II-XII grossly intact. Strength 5/5 in BUE & BLE. Alert and oriented x3. Psych: appropriate mood and affect. Objective Labs 11/24/24 05:20 11/24/24 05:20 Labs: Laboratory Results - last 24 hr 11/24/24 05:20 WBC 10.0 RBC 2.85 L Hgb 8.9 L Hct 26.7 L MCV 94 MCH 31.2 MCHC 33.3 RDW Std Deviation 47.0 H Plt Count 214 Neut % (Auto) 54 Lymph % (Auto) 33 [place] % (Auto) 9 Eos % (Auto) 3 Baso % (Auto) 1 Neut # (Auto) 5.4 Lymph # (Auto) 3.3 [place] # (Auto) 0.9 H Eos # (Auto) 0.3 Baso # (Auto) 0.1 Immature Gran # (Auto) 0.04 H Absolute Nucleated RBC 0.00 Immature Gran % 0 Nucleated RBC % 0 PT 12.0 INR 1.1 Sodium 143 Potassium 4.3 Chloride 112 H Carbon Dioxide 24.8 Anion Gap 6 L BUN 31 H Creatinine 1.5 H Estim Creat Clear Calc 40.5 L eGFR 45 L BUN/Creatinine Ratio 21 H Glucose 116 H Calculated Osmolality 292 Calcium 8.2 L Corrected Calcium 8.7 Phosphorus 3.6 Magnesium 2.2 Total Bilirubin 0.8 AST 11 ALT < 7 L Alkaline Phosphatase 66 Total Protein 5.1 L Albumin 3.4 Globulin 1.7 L Albumin/Globulin Ratio 2.0 Quality Measures Quality Measures VTE prophylaxis Advance care planning discussed with:: patient Assessment & Plan Assessment Current Active Medications: Generic Name Dose Route Start Last Admin Trade Name Freq PRN Reason Stop Dose Admin Acetaminophen 650 mg 11/21/24 20:46 Acetaminophen 325 Mg Tablet PO 12/21/24 20:45 Q6H PRN Pain (1-3) & Fever >100.4 Albuterol/Ipratropium 3 ml 11/21/24 21:06 Albuterol/Ipratropium (Duoneb) Rt Val 3 Ml Nebu INH 12/21/24 22:59 Q4HRRT PRN SOB/Wheeze Dextrose 25 ml 11/21/24 21:10 Dextrose 50%-Water Inj 50 Ml Syringe IV 12/21/24 21:09 Q15MIN PRN BG 50-70 responsive npo pt Dextrose 50 ml 11/21/24 21:10 Dextrose 50%-Water Inj 50 Ml Syringe IV 12/21/24 21:09 Q15MIN PRN BG <50 OR BG <70 & pt unresponsive Finasteride 5 mg 11/24/24 09:00 11/24/24 08:29 Finasteride 5 Mg Tablet PO 12/24/24 08:59 5 mg QDAY WENDY Administration Glucagon 1 mg 11/21/24 21:10 Glucagon Inj 1 Mg Vial IM Q15MIN PRN BG <70, and no IV access Insulin Human Lispro 0 unit 05/17/25 07:30 11/24/24 11:41 Insulin Lispro (Admelog) 1 Unit/0.01 Ml Unit SC 12/22/24 07:29 Not Given AC WENDY Protocol Labetalol HCl 10 mg 11/22/24 21:00 Labetalol Inj 5 Mg/Ml Vial 20 Ml IVP 12/22/24 21:59 Q4HR PRN SBP > 170 Ondansetron HCl 4 mg 11/21/24 20:46 Ondansetron Inj 2 Mg/Ml Inj 2 Ml IV 12/21/24 20:45 Q6H PRN NAUSEA OR VOMITING Protocol Pantoprazole Sodium 40 mg 11/21/24 21:00 11/24/24 08:29 Pantoprazole Inj 40 Mg Vial IVP 12/21/24 20:59 40 mg Q12HR WENDY Administration Sacubitril/Valsartan 1 tab 11/24/24 09:00 11/24/24 08:29 Sacubitril 24 Mg/Valsartan 26 Mg Tablet PO 12/24/24 08:59 1 tab DAILY WENDY Administration Sucralfate 1 gm 11/23/24 07:30 11/24/24 11:38 Sucralfate 1 Gm Tablet PO 12/23/24 07:29 1 gm ACHS WENDY Administration Tamsulosin HCl 0.4 mg 11/24/24 09:00 11/24/24 08:30 Tamsulosin Hcl 0.4 Mg Capsule PO 12/24/24 08:59 0.4 mg DAILY WENDY Administration Plan Patient is 84 years old male with past medical history of HFrEF 25% s/p VENTURE CAPITAL ANALYST-D placement, A-fib, CAD s/p CABG, CKD, COPD, diabetes type 2 presented to the ED due to GI bleed and was admitted for further evaluation and management. Patient was seen in cardiology office 3 days ago when his Eliquis was switched to Xarelto, he started new medication over the next day and developed bloody emesis with blood clots x 1, followed by black stools. #GI bleeding 2/2 ulcerated gastric mass. - Likely medication induced since patient was switched from Eliquis to Xarelto 3 days ago followed by bloody emesis and black stools. He is also taking aspirin. Plan: - Continue holding aspirin and Xarelto in anticipation of transfer and possible endoscopic gastric mass resection. - Continue Protonix 40 mg IV twice daily. #HFrEF 25% s/p VENTURE CAPITAL ANALYST-D placement. - Echo from 2023 showed Dilated left ventricle with lateral dynnchrony and severe septak dyskinesis Estimated EF 25%, Normal RV size. Severe RV systolic dysfunction. Estiamted RVSP 31mmHg. Pacing wire present. - At home patient was on optimized GDM: Entresto, spironolactone, Bumex, dapagliflozin. His heart failure is well-controlled based on physical exam. Plan: - Resume GDMT according to patient's blood pressure and bleeding status when possible. - Fluid restriction with daily I&O and daily weights. #Hx of A-fib. - Patient has VENTURE CAPITAL ANALYST-D placed and is not on any rate control. Plan: - Continue holding Xarelto. #CAD s/p CABG. -Patient is asymptomatic. At home taking aspirin and simvastatin. Plan: - Continue holding aspirin. - Can resume simvastatin when possible. Management of other problems as per primary team. Plan of care discussed with attending Dr. Patel. Jay Aguillon MD, PGY 2. Disclaimer: This note was dictated by speech recognition. Minor errors in plasterer spot may be present due to voice recognition software.
--- NOTE | 2024-11-25 14:40 | ESPR_ITS ---
RE: KRUNAL SALAS : 1940 DATE OF SERVICE: 11/23/2024 SUBJECTIVE: Krunal Salas admitted to the hospital with an episode of possible gastrointestinal bleeding yesterday, feeling a lot better. He does not complain of any chest pain or shortness of breath. OBJECTIVE: Vital Signs: Blood pressure 140/ 80_, pulse rate 70, respirations 16 Temperature normal. _ Neck: Supple. No JVD. Chest: Symmetrical. Lungs: Clear. Heart: Heart sounds regular. No gallops. Abdomen: Thin and soft. Extremities: No edema. ASSESSMENT: 1. Gastrointestinal bleeding. There was polyp apparently found ibyupper endoscopy showed fundal mass. The patient apparently was recommended to have resection of the fundal mass at [facility] . The patient taken off of anticoagulation completely. I am okay with that. OBJECTIVE: Vital Signs: Blood pressure 140/60, pulse rate 70. Neck: Supple. Lungs: Decreased breath sounds. No rales or rhonchi. Heart: Heart sounds irregular. Abdomen: Thin and soft. Extremities: No edema. LABORATORY DATA: Hemoglobin 9, hematocrit 27. ASSESSMENT: 1. Gastrointestinal bleeding secondary to fundal mass. Fundic gastric mass. Recommended to have resection at [facility]. 2. Coronary artery disease. Status post bypass graft surgery. 3. Status post [employer] defibrillator implantation. 4. Paroxysmal atrial fibrillation, mostly maintained sinus rhythm and paced rhythm. RECOMMENDATIONS: I am okay stopping the anticoagulation temporarily in preparation for the possible removal of the gastric mass. The patient can be transferred to [facility]. The patient's cardiac was stable. His ejection fraction improved significantly after the [employer] defibrillator. Cardiac soriano he is quite stable. In fact, last echocardiogram showed ejection fraction improved back to 50% in my office. DT: 23:: TT: 00:24:00 Ref: [id number] - TID: [id number] MTDD
== END 2024-11-24 12:40 | disposition home or self-care (01) | DRG 378 ==
LOC: SERX 20:43 → SERHOLD 21:54 → S2NX 11-22 18:30
PROVIDERS: Nurse Practitioner Family; Nurse Practitioner Primary Care; Specialist; Admitting Provider Student in an Organized Health Care Education/Training Program; Emergency Provider Emergency Medicine; PCP Specialist; Visit Provider Student in an Organized Health Care Education/Training Program
PROC: (CPT 43239; principal; 2024-11-22 15:45)
DX: K25.4 Chronic or unspecified gastric ulcer with hemorrhage (principal); D62 Acute posthemorrhagic anemia; I50.22 Chronic systolic (congestive) heart failure; N17.9 Acute kidney failure, unspecified; K92.1 Melena; I48.0 Paroxysmal atrial fibrillation; E11.22 Type 2 diabetes mellitus with diabetic chronic kidney disease; N18.32 Chronic kidney disease, stage 3b; J44.9 Chronic obstructive pulmonary disease, unspecified; K31.9 Disease of stomach and duodenum, unspecified; D63.1 Anemia in chronic kidney disease; N40.0 Benign prostatic hyperplasia without lower urinary tract symptoms; I25.5 Ischemic cardiomyopathy; I25.10 Atherosclerotic heart disease of native coronary artery without angina pectoris; Z95.1 Presence of aortocoronary bypass graft; Z87.11 Personal history of peptic ulcer disease; Z87.891 Personal history of nicotine dependence; Z79.82 Long term (current) use of aspirin; Z79.899 Other long term (current) drug therapy
CPT/HCPCS: 36415; 80053; 80061; 81001; 83036; 83690; 83735; 83880; 84100; 84443; 84484; 85014; 85018; 85025; 85610; 85730; 86850; 86900; 86901; 93005; 96372; 96374; 96376; 99285; A4217; J1200; J1815; J2250; J2470; J3010; A9270

== ENCOUNTER → 2024-12-23 | Outpatient (CLI) | payer MEDICARE, SELFPAY ==
[2024-12-23 17:47] LABS: Basophils # (Auto) 0.1 Thou/mm3 (0.0-0.2); Basophils % (Auto) 1 % (0-2.5); Eosinophils # (Auto) 0.7 Thou/mm3 (0.0-0.5); Eosinophils % (Auto) 7 % (0-10); Hematocrit 31.6 % (41.0-53.0); Hemoglobin 9.9 g/dL (13.5-16.0); Immature Granulocytes % (Auto) 0 % (0-0); Immature Granulocytes Auto 0.04 Thou/mm3 (0.00-0.00); Lymphocytes # (Auto) 2.3 Thou/mm3 (1.0-4.8); Lymphocytes % (Auto) 21 % (10-50); Mean Corpuscular HGB Conc 31.3 g/dl (31.0-37.0); Mean Corpuscular Hemoglobin 29.5 pg (25.0-35.0); Mean Corpuscular Volume 94 fL (80-100); Monocytes % (Auto) 9 % (0-12); Neutrophils # (Auto) 6.5 Thou/mm3 (1.8-7.7); Neutrophils % (Auto) 62 % (37-80); Nucleated Red Blood Cell % 0 /100 WBC (0); Platelet Count 351 Thou/mm3 (140-440); RDW Standard Deviation 50.6 fL (35.1-43.9); Red Blood Count 3.36 Miln/mm3 (4.50-5.90); White Blood Count 10.6 Thou/mm3 (3.8-10.6)
[2024-12-23 17:54] LABS: Glucose Estimated Average 91 mg/dL (80-131); Hemoglobin A1C 4.8 % Hgb (4.8-6.0)
[2024-12-23 17:56] LABS: Creatinine MALB Rnd Ur 197 mg/dL (30-125); Microalbumin Creat Ratio 28 mg/gCrea (<30); Microalbumin, Random Urine 55 mg/L (0-300)
[2024-12-23 18:09] LABS: Alanine Aminotransferase 7 U/L (10-49); Albumin, Serum 3.5 gm/dL (3.4-4.8); Albumin/Globulin Ratio 1.8 (1.2-2.2); Alkaline Phosphatase 86 U/L (46-116); Anion Gap 7 (7-16); Aspartate Amino Transferase 12 U/L (0-34); BUN/Creatinine Ratio 9 Ratio (12-20); Bilirubin,Total 0.4 mg/dL (0.3-1.2); Blood Urea Nitrogen 13 mg/dL (9-23); Calcium 8.7 mg/dL (8.3-10.6); Calcium (Corrected) 9.1 mg/dL (8.5-10.1); Carbon Dioxide 25.4 mMol/L (20.0-31.0); Cardiac Risk Estimate 2.5 RATIO (4.0-6.7); Chloride 109 mMol/L (98-107); Cholesterol 105 mg/dL (132-200); Creatinine (Component) 1.5 mg/dL (0.6-1.3); Globulin 1.9 gm/dL (2.3-3.5); Glucose 150 mg/dL (74-106); HDL Cholesterol 42 mg/dL (40-60); LDL Cholesterol,Calculated 41 mg/dL (0-130); Osmolality,Calculated 284 (275-295); Sodium 141 mMol/L (136-145); Thyroid Stimulating Hormone 0.38 uIU/mL (0.55-4.78); Total Protein 5.4 gm/dL (5.7-8.2); Triglycerides 108 mg/dL (30-150); eGFR 45 See Note
== END | disposition home or self-care (01) ==
LOC: COPL 16:11
PROVIDERS: PCP Specialist; Referring Provider Internal Medicine Cardiovascular Disease; Visit Provider Internal Medicine Cardiovascular Disease
DX: I48.21 Permanent atrial fibrillation (principal); E11.65 Type 2 diabetes mellitus with hyperglycemia; E78.2 Mixed hyperlipidemia; I10 Essential (primary) hypertension
CPT/HCPCS: 36415; 80053; 80061; 82043; 82570; 83036; 84443; 85025

== ENCOUNTER → 2024-12-30 | Outpatient (CLI) | payer MEDICARE, SELFPAY ==
[2024-12-30 17:41] LABS: Basophils # (Auto) 0.1 Thou/mm3 (0.0-0.2); Basophils % (Auto) 1 % (0-2.5); Eosinophils # (Auto) 0.7 Thou/mm3 (0.0-0.5); Eosinophils % (Auto) 6 % (0-10); Hemoglobin 10.7 g/dL (13.5-16.0); Immature Granulocytes % (Auto) 0 % (0-0); Immature Granulocytes Auto 0.04 Thou/mm3 (0.00-0.00); Lymphocytes # (Auto) 2.9 Thou/mm3 (1.0-4.8); Lymphocytes % (Auto) 25 % (10-50); Mean Corpuscular HGB Conc 32.4 g/dl (31.0-37.0); Mean Corpuscular Hemoglobin 29.6 pg (25.0-35.0); Mean Corpuscular Volume 91 fL (80-100); Monocytes % (Auto) 8 % (0-12); Neutrophils # (Auto) 7.2 Thou/mm3 (1.8-7.7); Neutrophils % (Auto) 60 % (37-80); Nucleated Red Blood Cell % 0 /100 WBC (0); Platelet Count 294 Thou/mm3 (140-440); RDW Standard Deviation 50.8 fL (35.1-43.9); Red Blood Count 3.61 Miln/mm3 (4.50-5.90); White Blood Count 11.9 Thou/mm3 (3.8-10.6)
[2024-12-30 17:56] LABS: Free T3 2.8 pg/mL (2.3-4.2); Free T4 (Free Thyroxine) 1.26 ng/dL (0.89-1.76); Thyroid Stimulating Hormone 0.43 uIU/mL (0.55-4.78)
[2024-12-30 18:19] LABS: Iron 34 mcg/dL (65-175); Percent Iron Saturation 11 % (20-55); Total Iron Binding Capacity 309 mcg/dL (250-425); Unsaturated Iron Binding 275 (225-295)
== END | disposition home or self-care (01) ==
LOC: COPL 16:20
PROVIDERS: PCP Specialist; Referring Provider Specialist; Visit Provider Specialist
DX: D64.9 Anemia, unspecified (principal); R94.7 Abnormal results of other endocrine function studies
CPT/HCPCS: 36415; 83540; 83550; 84439; 84443; 84481; 85025

== ENCOUNTER → 2025-01-14 | Outpatient (CLI) | payer MEDICARE, SELFPAY ==
--- NOTE | 2025-01-14 16:08 | XR_ITS ---
Examination: CTA carotids with intravenous contrast CTA brain, head with intravenous contrast. 2-D sagittal, coronal reconstructions. 3-D reconstructions. Exam date and time: January 14, 2025, 1635 hours INDICATIONS: Patient fell today with injury to the head, slurred speech CTDI: vol (mGy) 46.5 DLP: (mGycm) 526 Technique: Multiple CTA axial brain, head carotid images post intravenous contrast injection 60 cc [id number]. 2-D sagittal, coronal reconstructions. 3-D reconstructions, 3-D post processing including vascular maximum intensity projection images. Low dose protocols were performed. One or more of the following dose reduction techniques were used; automated exposure control, adjustment of the mA and/or KV according to patient size, use of iterative reconstruction technique. Findings: Because of the patient's renal insufficiency, limited contrast bolus was administered There is no diagnostic visualization of the neck or cerebral vessels IMPRESSION: No diagnostic visualization of the neck or cerebral vessels Consider follow-up CT brain scan without contrast as clinically warranted as well as carotid vertebral Doppler sonography
--- NOTE | 2025-01-14 16:08 | XR_ITS ---
Examination: CT brain head without contrast. 2-D sagittal coronal reconstructions Date and time of exam:January 14, 2025 at 1613 hours Comparison October 15, 2023 INDICATIONS: Patient fell today with injury to the head, followed by head pain slurred speech CTDI: vol (mGy):54 DLP: (mGycm):1161 Technique: Multiple CT axial sections of the brain have been obtained, 5 mm slice thickness. Contrast has not been administered. 2-D sagittal, coronal reconstructions have been obtained Low dose protocols were performed. One or more of the following dose reduction techniques were used; automated exposure control, adjustment of the mA and/or KV according to patient size, use of iterative reconstruction technique. Findings: No significant ventricular enlargement. Intra-axial or extra-axial hemorrhage density is not seen. No mass effect or midline shift Basal cisterns are not remarkable. Fourth ventricle is midline. Cranial vault intact. Prominent ethmoid chronic sinusitis Acute sphenoid sinusitis Impression: Negative for acute hemorrhage, mass effect or midline shift
== END | disposition home or self-care (01) ==
PROVIDERS: Referring Provider Specialist; Visit Provider Specialist
DX: J01.30 Acute sphenoidal sinusitis, unspecified (principal); J32.2 Chronic ethmoidal sinusitis
CPT/HCPCS: 70450; 70496; 70498; A4649; Q9967

== ENCOUNTER → 2025-01-15 | Outpatient (CLI) | payer MEDICARE, SELFPAY ==
--- NOTE | 2025-01-15 14:41 | XR_ITS ---
Examination: Shoulder,right, 3 views Technique: Shoulder AP internal rotation, AP external rotation, Y view shoulder, 3 views Exam date and time :12 5002 hours INDICATIONS: Patient fell 3 days ago with injury to the shoulder, shoulder pain. FINDINGS: Fracture right clavicle, with comminution and offset Humerus scapula appear intact Prominent osteopenia IMPRESSION: Recommend follow-up clavicle views to better assess fracture distal clavicle
== END | disposition home or self-care (01) ==
PROVIDERS: PCP Specialist; Referring Provider Specialist; Visit Provider Specialist
DX: S49.91XA Unspecified injury of right shoulder and upper arm, initial encounter (principal); W19.XXXA Unspecified fall, initial encounter
CPT/HCPCS: 73030

== ENCOUNTER → 2025-02-06 | Outpatient (CLI) | payer MEDICARE, SELFPAY ==
[2025-02-06 15:50] LABS: Prostate Specific Antigen 1.97 ng/mL (0-4.00)
== END | disposition home or self-care (01) ==
LOC: COPL 13:28
PROVIDERS: PCP Specialist; Referring Provider Urology; Visit Provider Urology
DX: C61 Malignant neoplasm of prostate (principal)
CPT/HCPCS: 36415; 84153

== ENCOUNTER → 2025-02-09 | Outpatient (BNVA) | payer MEDICARE, SELFPAY | END | disposition home or self-care (01) | PROVIDERS: PCP Specialist; Referring Provider Specialist; Visit Provider Urology | DX: N40.1 Benign prostatic hyperplasia with lower urinary tract symptoms (principal); N13.8 Other obstructive and reflux uropathy; I13.0 Hypertensive heart and chronic kidney disease with heart failure and stage 1 through stage 4 chronic kidney disease, or unspecified chronic kidney disease; E11.22 Type 2 diabetes mellitus with diabetic chronic kidney disease; N18.30 Chronic kidney disease, stage 3 unspecified; E66.9 Obesity, unspecified; Z68.28 Body mass index [BMI] 28.0-28.9, adult; E78.00 Pure hypercholesterolemia, unspecified; I25.2 Old myocardial infarction; I50.9 Heart failure, unspecified; Z95.0 Presence of cardiac pacemaker; Z95.1 Presence of aortocoronary bypass graft | CPT/HCPCS: 81003; 99212; G0463 ==

== ENCOUNTER → 2025-03-30 | Outpatient (CLI) | payer MEDICARE, SELFPAY ==
[2025-03-30 15:53] LABS: Collection Type, Urine Clean Catch; Squamous Epithelial Cell,Urine 0 /hpf (0-5)
[2025-03-30 16:08] LABS: Basophils # (Auto) 0.1 Thou/mm3 (0.0-0.2); Basophils % (Auto) 1 % (0-2.5); Eosinophils # (Auto) 0.4 Thou/mm3 (0.0-0.5); Eosinophils % (Auto) 5 % (0-10); Hematocrit 39.0 % (41.0-53.0); Hemoglobin 12.6 g/dL (13.5-16.0); Immature Granulocytes Auto 0.01 Thou/mm3 (0.00-0.00); Lymphocytes # (Auto) 2.1 Thou/mm3 (1.0-4.8); Lymphocytes % (Auto) 25 % (10-50); Mean Corpuscular HGB Conc 32.3 g/dl (31.0-37.0); Mean Corpuscular Hemoglobin 29.0 pg (25.0-35.0); Mean Corpuscular Volume 90 fL (80-100); Monocytes # (Auto) 0.8 Thou/mm3 (0.0-0.8); Monocytes % (Auto) 10 % (0-12); Neutrophils # (Auto) 5.1 Thou/mm3 (1.8-7.7); Neutrophils % (Auto) 60 % (37-80); Nucleated Red Blood Cell # 0.00 Thou/mm3 (0.00-0.00); Nucleated Red Blood Cell % 0 /100 WBC (0); Platelet Count 198 Thou/mm3 (140-440); RDW Standard Deviation 51.3 fL (35.1-43.9); Red Blood Count 4.34 Miln/mm3 (4.50-5.90); White Blood Count 8.6 Thou/mm3 (3.8-10.6)
[2025-03-30 16:15] LABS: Bilirubin,Urine Negative (Negative); Blood,Urine Negative (Negative); Clarity,Urine Clear (Clear/Hazy); Color,Urine Lt-Yellow (Lt Yel-Yel); Glucose, Urine Negative (Negative); Ketones,Urine Negative (Negative); Leukocyte Esterase,Urine Negative (Negative); Nitrite,Urine Negative (Negative); PH,Urine 6.5 (5.0-7.0); Protein,Urine Negative (Neg - Trace); RBC,Urine < 1 /hpf (0-3); Specific Gravity,Urine 1.012 (1.001-1.035); Urobilinogen,Urine Negative mg/dL (0.0-1.0); WBC,Urine < 1 /hpf (0-5)
[2025-03-30 16:24] LABS: Creatinine MALB Rnd Ur 90 mg/dL (30-125); Microalbumin, Random Urine < 3 mg/L (0-300)
[2025-03-30 16:24] LABS: Parathyroid Hormone Intact 152.5 pg/ml (18.5-88.0)
[2025-03-30 16:30] LABS: Albumin, Serum 3.8 gm/dL (3.4-4.8); Anion Gap 8 (7-16); BUN/Creatinine Ratio 9 Ratio (12-20); Blood Urea Nitrogen 13 mg/dL (9-23); Calcium 9.2 mg/dL (8.3-10.6); Calcium (Corrected) 9.4 mg/dL (8.5-10.1); Carbon Dioxide 23.7 mMol/L (20.0-31.0); Chloride 110 mMol/L (98-107); Creatinine (Component) 1.5 mg/dL (0.6-1.3); Glucose 111 mg/dL (74-106); Osmolality,Calculated 284 (275-295); Phosphorous 2.9 mg/dL (2.4-5.1); Potassium 5.0 mMol/L (3.4-5.1); Sodium 142 mMol/L (136-145); eGFR 45 See Note
== END | disposition home or self-care (01) ==
LOC: COPL 15:06
PROVIDERS: PCP Specialist; Referring Provider Internal Medicine; Visit Provider Internal Medicine
DX: Z01.89 Encounter for other specified special examinations (principal)
CPT/HCPCS: 36415; 80069; 81001; 82043; 82570; 83970; 85025

== ENCOUNTER → 2025-03-31 | Outpatient (CLI) | payer MEDICARE, SELFPAY ==
[2025-03-31 16:32] LABS: Basophils # (Auto) 0.0 Thou/mm3 (0.0-0.2); Basophils % (Auto) 0 % (0-2.5); Eosinophils # (Auto) 0.0 Thou/mm3 (0.0-0.5); Eosinophils % (Auto) 0 % (0-10); Hematocrit 39.2 % (41.0-53.0); Hemoglobin 13.1 g/dL (13.5-16.0); Immature Granulocytes Auto 0.04 Thou/mm3 (0.00-0.00); Lymphocytes # (Auto) 1.7 Thou/mm3 (1.0-4.8); Lymphocytes % (Auto) 17 % (10-50); Mean Corpuscular HGB Conc 33.4 g/dl (31.0-37.0); Mean Corpuscular Hemoglobin 29.8 pg (25.0-35.0); Mean Corpuscular Volume 89 fL (80-100); Monocytes # (Auto) 0.5 Thou/mm3 (0.0-0.8); Monocytes % (Auto) 5 % (0-12); Neutrophils # (Auto) 7.6 Thou/mm3 (1.8-7.7); Neutrophils % (Auto) 78 % (37-80); Nucleated Red Blood Cell # 0.00 Thou/mm3 (0.00-0.00); Nucleated Red Blood Cell % 0 /100 WBC (0); Platelet Count 215 Thou/mm3 (140-440); RDW Standard Deviation 50.1 fL (35.1-43.9); Red Blood Count 4.39 Miln/mm3 (4.50-5.90); White Blood Count 9.9 Thou/mm3 (3.8-10.6)
[2025-03-31 17:06] LABS: Glucose Estimated Average 114 mg/dL (80-131); Hemoglobin A1C 5.6 % Hgb (4.8-6.0)
[2025-03-31 17:13] LABS: Creatinine MALB Rnd Ur 174 mg/dL (30-125); Microalbumin Creat Ratio 5 mg/gCrea (<30); Microalbumin, Random Urine 9 mg/L (0-300)
[2025-03-31 17:14] LABS: Iron 53 mcg/dL (65-175); Percent Iron Saturation 18 % (20-55); Total Iron Binding Capacity 284 mcg/dL (250-425); Unsaturated Iron Binding 231 (225-295)
[2025-03-31 17:24] LABS: Alanine Aminotransferase < 7 U/L (10-49); Albumin, Serum 3.9 gm/dL (3.4-4.8); Albumin/Globulin Ratio 1.9 (1.2-2.2); Alkaline Phosphatase 88 U/L (46-116); Anion Gap 10 (7-16); Aspartate Amino Transferase 14 U/L (0-34); BUN/Creatinine Ratio 9 Ratio (12-20); Bilirubin,Total 0.7 mg/dL (0.3-1.2); Blood Urea Nitrogen 15 mg/dL (9-23); Calcium 9.2 mg/dL (8.3-10.6); Calcium (Corrected) 9.3 mg/dL (8.5-10.1); Carbon Dioxide 25.2 mMol/L (20.0-31.0); Cardiac Risk Estimate 2.5 RATIO (4.0-6.7); Chloride 108 mMol/L (98-107); Cholesterol 123 mg/dL (132-200); Creatinine (Component) 1.6 mg/dL (0.6-1.3); Globulin 2.1 gm/dL (2.3-3.5); Glucose 215 mg/dL (74-106); HDL Cholesterol 50 mg/dL (40-60); LDL Cholesterol,Calculated 57 mg/dL (0-130); Osmolality,Calculated 291 (275-295); Potassium 4.6 mMol/L (3.4-5.1); Sodium 143 mMol/L (136-145); Total Protein 6.0 gm/dL (5.7-8.2); Triglycerides 79 mg/dL (30-150); eGFR 41 See Note
== END | disposition home or self-care (01) ==
LOC: COPL 14:40
PROVIDERS: PCP Specialist; Referring Provider Specialist; Visit Provider Specialist
DX: E11.65 Type 2 diabetes mellitus with hyperglycemia (principal); E78.2 Mixed hyperlipidemia; D63.8 Anemia in other chronic diseases classified elsewhere
CPT/HCPCS: 36415; 80053; 80061; 82043; 82570; 83036; 83540; 83550; 85025

== ENCOUNTER → 2025-04-02 | Outpatient (CLI) | payer MEDICARE, SELFPAY ==
--- NOTE | 2025-04-02 | XR_ITS ---
Examination: Abdomen sonogram, complete Date and time of exam: April 02, 2025, 0725 hrs. Indications: Gastrointestinal bleeding 1 week, with epigastric pain, history gastric tumor. Technique: Multiple real-time grayscale transabdominal sonographic images of the abdomen have been obtained. Findings: Normal gallbladder. Normal common bile duct 0.4 cm Pancreatic head 2.7 cm Mid and distal aorta visualized not enlarged Liver 15.9 cm fatty infiltration Normal hepatopedal portal venous flow Patent IVC Right kidney 9.1 cm cortex 1.3 cm 9 mm midpole calculus Left kidney 10.0 cm cortex 1.7 cm 35 mm lower pole cyst Moderate renal parenchymal scar formation Spleen 8.7 cm Impression: Normal gallbladder Normal common bile duct Small kidneys with bilateral renal cortical thinning Moderate renal parenchymal scar formation 9 mm midpole nonobstructing right renal calculus
--- NOTE | 2025-04-02 | XR_ITS ---
Examination: PA lateral chest 2 views TECHNIQUE: Upright PA lateral chest 2 views Date and time: April 02, 2025 0808 hours INDICATIONS: Shortness of breath beginning 10 days ago FINDINGS: Layered left pleural fluid Mild prominence left ventricle CABG Cardiac leads satisfactory position Severe osteopenia No heather pulmonary edema, no lobar pneumonia IMPRESSION: Mild to moderate left pleural fluid
[2025-04-02 08:55] LABS: B-Type Natriuretic Peptide 214 pg/mL (0-100)
[2025-04-02 09:19] LABS: D-Dimer 790 ng/mL (<600); Troponin I 0.190 ng/mL (0.0-0.045)
== END | disposition home or self-care (01) ==
LOC: CDIM 06:46 → COPL 09:26
PROVIDERS: PCP Specialist; Referring Provider Specialist; Visit Provider Radiology Diagnostic Radiology
DX: N27.1 Small kidney, bilateral (principal); N28.89 Other specified disorders of kidney and ureter; N20.0 Calculus of kidney; J94.8 Other specified pleural conditions; R06.02 Shortness of breath
CPT/HCPCS: 36415; 71046; 76700; 83880; 84484; 85379

== ENCOUNTER → 2025-05-20 | Outpatient (CLI) | payer MEDICARE, SELFPAY ==
[2025-05-20 16:42] LABS: Albumin, Serum 4.1 gm/dL (3.4-4.8); Anion Gap 8 (7-16); BUN/Creatinine Ratio 13 Ratio (12-20); Blood Urea Nitrogen 25 mg/dL (9-23); Calcium 9.1 mg/dL (8.3-10.6); Calcium (Corrected) 9.1 mg/dL (8.5-10.1); Carbon Dioxide 28.5 mMol/L (20.0-31.0); Chloride 104 mMol/L (98-107); Creatinine (Component) 2.0 mg/dL (0.6-1.3); Glucose 168 mg/dL (74-106); Osmolality,Calculated 287 (275-295); Phosphorous 2.8 mg/dL (2.4-5.1); Potassium 4.5 mMol/L (3.4-5.1); Sodium 140 mMol/L (136-145); eGFR 32 See Note
== END | disposition home or self-care (01) ==
LOC: COPL 15:33
PROVIDERS: PCP Specialist; Referring Provider Internal Medicine Cardiovascular Disease; Visit Provider Internal Medicine Cardiovascular Disease
DX: I48.21 Permanent atrial fibrillation (principal); I50.22 Chronic systolic (congestive) heart failure; Z95.1 Presence of aortocoronary bypass graft
CPT/HCPCS: 36415; 80069

== ENCOUNTER → 2025-06-15 | Outpatient (CLI) | payer MEDICARE, SELFPAY ==
[2025-06-15 18:22] LABS: Basophils # (Auto) 0.1 Thou/mm3 (0.0-0.2); Basophils % (Auto) 1 % (0-2.5); Eosinophils # (Auto) 0.3 Thou/mm3 (0.0-0.5); Eosinophils % (Auto) 2 % (0-10); Hematocrit 41.6 % (41.0-53.0); Hemoglobin 13.8 g/dL (13.5-16.0); Immature Granulocytes Auto 0.04 Thou/mm3 (0.00-0.00); Lymphocytes # (Auto) 2.2 Thou/mm3 (1.0-4.8); Lymphocytes % (Auto) 19 % (10-50); Mean Corpuscular HGB Conc 33.2 g/dl (31.0-37.0); Mean Corpuscular Hemoglobin 31.7 pg (25.0-35.0); Mean Corpuscular Volume 96 fL (80-100); Monocytes # (Auto) 0.9 Thou/mm3 (0.0-0.8); Monocytes % (Auto) 8 % (0-12); Neutrophils # (Auto) 8.1 Thou/mm3 (1.8-7.7); Neutrophils % (Auto) 69 % (37-80); Nucleated Red Blood Cell # 0.00 Thou/mm3 (0.00-0.00); Nucleated Red Blood Cell % 0 /100 WBC (0); Platelet Count 222 Thou/mm3 (140-440); RDW Standard Deviation 47.8 fL (35.1-43.9); Red Blood Count 4.35 Miln/mm3 (4.50-5.90); White Blood Count 11.6 Thou/mm3 (3.8-10.6)
[2025-06-15 18:36] LABS: Creatinine MALB Rnd Ur 95 mg/dL (30-125); Microalbumin Creat Ratio 4 mg/gCrea (<30); Microalbumin, Random Urine 4 mg/L (0-300)
[2025-06-15 20:12] LABS: Glucose Estimated Average 137 mg/dL (80-131); Hemoglobin A1C 6.4 % Hgb (4.8-6.0)
[2025-06-15 20:18] LABS: Iron 67 mcg/dL (65-175)
[2025-06-15 20:31] LABS: Alanine Aminotransferase 10 U/L (10-49); Albumin, Serum 4.1 gm/dL (3.4-4.8); Albumin/Globulin Ratio 1.7 (1.2-2.2); Alkaline Phosphatase 97 U/L (46-116); Anion Gap 10 (7-16); Aspartate Amino Transferase 16 U/L (0-34); BUN/Creatinine Ratio 14 Ratio (12-20); Bilirubin,Total 0.6 mg/dL (0.3-1.2); Blood Urea Nitrogen 29 mg/dL (9-23); Calcium 9.0 mg/dL (8.3-10.6); Calcium (Corrected) 9.0 mg/dL (8.5-10.1); Carbon Dioxide 25.4 mMol/L (20.0-31.0); Cardiac Risk Estimate 2.5 RATIO (4.0-6.7); Chloride 106 mMol/L (98-107); Cholesterol 118 mg/dL (132-200); Creatinine (Component) 2.1 mg/dL (0.6-1.3); Globulin 2.4 gm/dL (2.3-3.5); Glucose 174 mg/dL (74-106); HDL Cholesterol 47 mg/dL (40-60); LDL Cholesterol,Calculated 42 mg/dL (0-130); Osmolality,Calculated 291 (275-295); Potassium 4.5 mMol/L (3.4-5.1); Sodium 141 mMol/L (136-145); Thyroid Stimulating Hormone 0.63 uIU/mL (0.55-4.78); Total Protein 6.5 gm/dL (5.7-8.2); Triglycerides 143 mg/dL (30-150); eGFR 30 See Note
== END | disposition home or self-care (01) ==
LOC: COPL 15:43
PROVIDERS: PCP Specialist; Referring Provider Specialist; Visit Provider Specialist
DX: E11.65 Type 2 diabetes mellitus with hyperglycemia (principal); E78.2 Mixed hyperlipidemia; D63.8 Anemia in other chronic diseases classified elsewhere; I10 Essential (primary) hypertension
CPT/HCPCS: 36415; 80053; 80061; 82043; 82570; 83036; 83540; 84443; 85025

== ENCOUNTER → 2025-06-17 | Outpatient (CLI) | payer MEDICARE, SELFPAY ==
[2025-06-17 12:15] LABS: Albumin, Serum 4.5 gm/dL (3.4-4.8); Anion Gap 10 (7-16); BUN/Creatinine Ratio 12 Ratio (12-20); Blood Urea Nitrogen 24 mg/dL (9-23); Calcium 9.8 mg/dL (8.3-10.6); Calcium (Corrected) 9.8 mg/dL (8.5-10.1); Carbon Dioxide 26.5 mMol/L (20.0-31.0); Chloride 105 mMol/L (98-107); Creatinine (Component) 2.0 mg/dL (0.6-1.3); Glucose 170 mg/dL (74-106); Osmolality,Calculated 289 (275-295); Phosphorous 3.0 mg/dL (2.4-5.1); Potassium 4.9 mMol/L (3.4-5.1); Sodium 141 mMol/L (136-145); eGFR 32 See Note
== END | disposition home or self-care (01) ==
LOC: COPL 11:19
PROVIDERS: PCP Specialist; Referring Provider Internal Medicine Cardiovascular Disease; Visit Provider Internal Medicine Cardiovascular Disease
DX: I48.21 Permanent atrial fibrillation (principal); I50.22 Chronic systolic (congestive) heart failure; Z95.1 Presence of aortocoronary bypass graft
CPT/HCPCS: 36415; 80069